=== PATIENT | female | born 1940 | race Caucasian/White ===

== ENCOUNTER 2016-07-10 18:37 | Emergency (ER) | payer OTHER, MEDICAID ==
[~2016-07-10] VITALS: Ht 162.6 cm; Wt 71.0 kg
[2016-07-10 18:58] VITALS: Ht 162.6 cm; Wt 71.0 kg
[2016-07-10 20:57] LABS: BASOPHIL # 0.1 10^3/ul (0.0-0.1); BASOPHILS % 0.6 % (0.0-2.0); EOSINOPHILS # 0.5 10^3/ul (0.0-0.5); EOSINOPHILS % 5.6 % (0.0-7.0); HEMOGLOBIN 11.8 g/dl (12.0-16.0); LYMPHOCYTES # 1.4 10^3/ul (0.8-2.9); LYMPHOCYTES % 14.5 % (15.0-51.0); MEAN CORPUSCULAR HEMOGLOBIN 31.5 pg (29.0-33.0); MEAN CORPUSCULAR HGB CONC 34.8 g/dl (32.0-37.0); MEAN CORPUSCULAR VOLUME 90.6 fl (82.0-101.0); MEAN PLATELET VOLUME 8.9 fl (7.4-10.4); MONOCYTE # 0.9 10^3/ul (0.3-0.9); MONOCYTES % 9.1 % (0.0-11.0); NEUTROPHIL # 6.7 10^3/ul (1.6-7.5); NEUTROPHILS % 70.2 % (39.0-77.0); PLATELET COUNT 319 10^3/UL (140-440); RED BLOOD COUNT 3.75 10^6/ul (4.20-5.40); RED CELL DISTRIBUTION WIDTH 13.2 % (11.5-14.5); UNCORRECTED WBC 9.5 10^3/ul (4.8-10.8); WHITE BLOOD COUNT 9.5 10^3/ul (4.8-10.8)
[2016-07-10 20:59] LABS: CONDITION 1
[2016-07-10 21:06] LABS: ALBUMIN 3.7 g/dl (3.3-4.9); POTASSIUM 4.1 mmol/L (3.5-5.1)
[2016-07-10 21:09] LABS: ALBUMIN/GLOBULIN RATIO 1.05; BILIRUBIN,INDIRECT 0.2 mg/dl (0-1.1); BILIRUBIN,TOTAL 0.2 mg/dl (0.2-1.3); CALCIUM 8.9 mg/dl (8.4-10.2); CREATININE 1.18 mg/dl (0.44-1.00); TOTAL PROTEIN 7.2 g/dl (6.1-8.1)
--- NOTE | 2016-07-10 21:42 | RADRPT ---
PROCEDURE: XR Chest. CLINICAL INDICATION: Bilateral leg swelling with branch. TECHNIQUE: Single frontal view of the chest was obtained COMPARISON: None FINDINGS: Cardiomegaly and atherosclerotic calcifications in the thoracic aorta. Very mild pulmonary vascular congestion. There is no pleural effusion or pneumothorax. IMPRESSION: Cardiomegaly and atherosclerotic calcifications in the thoracic aorta, with very mild pulmonary vasc ular congestion. RPTAT: [facility] Physician Karmen Date Time Electronically viewed and signed by Asa Gamble Physician on 07/10/2016 21:42 RS/
--- NOTE | 2016-07-10 22:11 | ERD ---
ER Documentation Chief Complaint Date/Time DATE: 07/10/16 TIME: 22:01 Chief Complaint rash all over body for past week HPI This is a 76-year-old female presenting to the emergency department for rash and bilateral leg swelling 1 week. Patient has generalized all over body rash to bilateral arms, bilateral legs, trunk, neck, hands and fingers. Patient states the rash is pruritic. Patient states she has gone to her primary care provider twice for this however the medications she is gotten has not helped with the rash. No fevers or chills. Patient also has swelling to bilateral legs. Patient has history of heart condition. Patient is poor historian. Patient is taking medications from [place] for this. No shortness of breath, difficult to breathing or chest pain. Denies loss of sensation, numbness or tingling. ROS All systems reviewed and are negative except as per history of present illness. Medications Home Meds Active Scripts Cephalexin* (Keflex*) 500 Mg Capsule, 500 MG PO QID for 5 Days, CAP Prov:BRETT MORRIS NP 07/10/16 Prednisone* (Prednisone*) 20 Mg Tab, 60 MG PO DAILY for 4 Days, TAB Prov:BRETT MORRIS NP 07/10/16 Allergies Allergies: Coded Allergies: No Known Allergy (Unverified , 07/10/16) PMhx/Soc Medical and Surgical Hx: pt denies Surgical Hx Hx Cardiac Disorders: Yes (htn) Hx Alcohol Use: No Hx Substance Use: No Hx Tobacco Use: No Smoking Status: Never smoker Physical Exam Vitals Vital Signs Date Time Temp Pulse Resp B/P Pulse Ox O2 Delivery O2 Flow Rate FiO2 07/10/16 23:24 97.0 55 18 135/62 100 Room Air 07/10/16 18:58 98.5 65 18 141/65 97 Physical Exam Const: No acute distress, alert Head: Atraumatic Eyes: Normal Conjunctiva ENT: Normal External Ears, Nose and Mouth. Neck: Full range of motion..~ No meningismus. Resp: Diminished to auscultation bilaterally Cardio: Regular rate and rhythm, no murmurs Abd: Soft, non tender, non distended. Normal bowel sounds Skin: Eczematous rash with itching, erythema, scaling and crusting to bilateral lower extremities. Similar rash to bilateral upper extremities on the dorsal aspect of bilateral arms. Some erythema to inner webs of fingers on bilateral hands appear Back: No midline or flank tenderness Ext: 1+ edema to bilateral lower extremities. Neur: Awake and alert Psych: Normal Mood and Affect Result Diagram: 07/10/16204207/10/162042 Results 24 hrs Laboratory Tests Test 07/10/16 20:43 Alanine Aminotransferase (ALT/SGPT) 21IU/L Albumin 3.7g/dl Albumin/Globulin Ratio 1.05 Alkaline Phosphatase 91IU/L Anion Gap 16 Aspartate Amino Transf (AST/SGOT) 15IU/L B-Type Natriuretic Peptide 2770PG/ML Basophils # 0.110^3/ul Basophils % 0.6% Blood Urea Nitrogen 28mg/dl Calcium Level 8.9mg/dl Carbon Dioxide Level 23mmol/L Chloride Level 103mmol/L Creatinine 1.18mg/dl Direct Bilirubin 0.00mg/dl Eosinophils # 0.510^3/ul Eosinophils % 5.6% Globulin 3.50g/dl Glucose Level 101mg/dl Hematocrit 34.0% Hemoglobin 11.8g/dl Indirect Bilirubin 0.2mg/dl Lymphocytes # 1.410^3/ul Lymphocytes % 14.5% Mean Corpuscular Hemoglobin 31.5pg Mean Corpuscular Hemoglobin Concent 34.8g/dl Mean Corpuscular Volume 90.6fl Mean Platelet Volume 8.9fl Monocytes # 0.910^3/ul Monocytes % 9.1% Neutrophils # 6.710^3/ul Neutrophils % 70.2% Nucleated Red Blood Cells # 0.010^3/ul Nucleated Red Blood Cells % 0.0/100WBC Platelet Count 83952^3/UL Potassium Level 4.1mmol/L Red Blood Count 3.7510^6/ul Red Cell Distribution Width 13.2% Sodium Level 138mmol/L Total Bilirubin 0.2mg/dl Total Protein 7.2g/dl White Blood Count 9.510^3/ul Current Medications Medications (Trade) Dose Ordered Sig/Cinda Route PRN Reason Start Time Stop Time Status Last Admin Dose Admin Furosemide (Lasix) 40 mg ONCE ONCE PO 07/10/16 22:30 07/10/16 22:31 DC 07/10/16 22:50 Dexamethasone (Decadron) 10 mg ONCE ONCE IM 07/10/16 22:30 07/10/16 22:31 DC 07/10/16 22:51 Procedures/MDM ED COURSE: The patient was stable throughout ED course. I kept the patient and/or family informed of laboratory and diagnostic imaging results throughout the ED course. Decadron and Lasix given Laboratory CBC hemoglobin 11.8, hematocrit 34.0 CMP BUN 28, creatinine 1.18 BNP 2770 Imaging Chest x-ray Patient: DARREL RODRIGUEZ : 1940 Age: 76 Sex: F [id number] DOS: 07/10/162013 Ordering MD: BRETT MORRIS NP Location: [facility] Room/Bed: PROCEDURE: XR Chest. CLINICAL INDICATION: Bilateral leg swelling with branch. TECHNIQUE: Single frontal view of the chest was obtained COMPARISON: None FINDINGS: Cardiomegaly and atherosclerotic calcifications in the thoracic aorta. Very mild pulmonary vascular congestion. There is no pleural effusion or pneumothorax. IMPRESSION: Cardiomegaly and atherosclerotic calcifications in the thoracic aorta, with very mild pulmonary vascular congestion. MDM: This is a 76-year-old female presents to the ER for rash and bilateral leg swelling 1 week. Patient has a history of heart condition and takes medications for this from [place]. Physical exam reveals eczematous rash with itching, erythema, scaling and crusting. Has 1+ edema to bilateral lower extremities. Labs significant for hemoglobin 11.8, hematocrit 34.0, BUN 28, creatinine 1.18, BNP 2770. Remains neurovascularly intact. Chest x-ray reviewed by radiologist as cardiomegaly and atherosclerotic calcifications in the thoracic aorta with very mild pulmonary vascular congestion. Discussed findings with Dr. Ordaz who also examined the patient. Dr. Ordaz believes that patient is safe for discharge home and appropriate for outpatient management with oral antibiotics and prednisone. Dr. Ordaz is also recommending oral Lasix and IM Decadron given in the ED prior to discharge. Patient remains hemodynamically stable throughout ED visit. Remains calm and comfortable. Patient's lung exam is unremarkable and is on her current CHF medications. CHF status remains stable despite lab results. No shortness of breath, difficulty breathing, wheezing or chest pain. Low suspicion for cellulitis, scabies or status dermatitis. Patient likely has contact dermatitis. Patient is appropriate for outpatient management will be given prescription for Keflex and prednisone. Instructed patient to follow-up with primary care provider in the next 1-2 days for reassessment and additional management. Resources provided. Return to ED for any high fever, chest pain, difficulty breathing, shortness breath, wheezing, vomiting, diarrhea, abdominal pain or any new or worsening symptoms. Patient verbalizes understanding. All questions answered at discharge. Departure Diagnosis: Primary Impression: Rash and other nonspecific skin eruption Condition: Stable BRETT MORRIS NP Jul 10, 2016 22:11
[2016-07-10] MEDS ORDERED: FUROSEMIDE 20 MG TAB PO ONE (22:30)
[2016-07-10] MEDS ORDERED: DEXAMETHASONE 10 MG/ML 1 ML INJ IM ONE (22:30)
[2016-07-10] MEDS ORDERED: PRED20TA PO (23:00)
[2016-07-10] MEDS ORDERED: CEPH-443 PO (23:00)
[2016-07-10 23:24] VITALS: BP 135/62; PULSE 55; RESP 18; TEMP 97
== END 2016-07-10 23:24 | disposition home or self-care (01) ==
LOC: E/R 18:37 → FTE 23:24
DX: R21 Rash and other nonspecific skin eruption (principal); I10 Essential (primary) hypertension
CPT/HCPCS: 71010; 80053; 83880; 85025; J1100; 96372

== ENCOUNTER 2016-08-08 20:15 | Inpatient (IN) | payer OTHER ==
[~2016-08-08] VITALS: Ht 162.6 cm; Wt 68.0 kg
[~2016-08-08 20:15] MED LIST: CEPH-443 PO; PRED20TA PO
[2016-08-08] MEDS ORDERED: FUROSEMIDE 40 MG INJ IV STA (22:22)
[2016-08-08] MEDS ORDERED: CONCOR PO (22:48)
--- NOTE | 2016-08-08 23:01 | RADRPT ---
PROCEDURE: XR Chest. CLINICAL INDICATION: Chest pain TECHNIQUE: AP Portable chest. COMPARISON: 07/10/2016 FINDINGS: There air is mild cardiomegaly. There is mild pulmonary vascular congestion. The osseous structure s are unremarkable. IMPRESSION: Mild pulmonary vascular congestion. RPTAT: HIKT .Niko Munguia MD, MD Date Time Electronically viewed and signed by .Niko Munguia MD, on 08/08/2016 23:01 .T/
[2016-08-08 23:44] LABS: ADD SCAN DIFF NO
[2016-08-08 23:48] LABS: BASOPHILS % 0.3 % (0.0-2.0); EOSINOPHILS # 0.8 10^3/ul (0.0-0.5); EOSINOPHILS % 10.5 % (0.0-7.0); HEMATOCRIT 31.7 % (37.0-47.0); HEMOGLOBIN 10.1 g/dl (12.0-16.0); LYMPHOCYTES # 1.2 10^3/ul (0.8-2.9); MEAN CORPUSCULAR HEMOGLOBIN 30.1 pg (29.0-33.0); MEAN CORPUSCULAR HGB CONC 31.9 g/dl (32.0-37.0); MEAN CORPUSCULAR VOLUME 94.6 fl (82.0-101.0); MEAN PLATELET VOLUME 10.6 fl (7.4-10.4); MONOCYTE # 0.7 10^3/ul (0.3-0.9); MONOCYTES % 9.1 % (0.0-11.0); NEUTROPHIL # 4.5 10^3/ul (1.6-7.5); NEUTROPHILS % 62.7 % (39.0-77.0); PLATELET COUNT 364 10^3/UL (140-415); RED BLOOD COUNT 3.35 10^6/ul (4.20-5.40); RED CELL DISTRIBUTION WIDTH 13.2 % (11.5-14.5); WHITE BLOOD COUNT 7.2 10^3/ul (4.8-10.8)
[2016-08-09] VITALS (11 sets, daily range): BP systolic 109–140; BP diastolic 56–63; PULSE 60–85; RESP 17–20; Ht 162.6 cm; Wt 68.0 kg
[2016-08-09] LABS: INR 1.12; PROTIME 14.4 Sec (12.2-14.2); PT RATIO 1.1
[2016-08-09 00:01] LABS: PARTIAL THROMBOPLASTIN TIME 27.9 Sec (25.0-35.0)
[2016-08-09 00:08] LABS: ALBUMIN 3.3 g/dl (3.3-4.9)
[2016-08-09 00:09] LABS: POTASSIUM 4.7 mmol/L (3.5-5.1)
--- NOTE | 2016-08-09 00:10 | ERA ---
ER Documentation Chief Complaint Date/Time DATE: 08/09/16 TIME: 00:08 Chief Complaint CHRISTINE UPPER AND LOWER EXT SWELLING. HX HEART FAILURE. +SOB UPON EXERTION HPI This is a 76 year from bilateral upper and lower extremity swelling. Patient has history of heart regular. Patient says she short of breath. No nausea no vomiting no chills. No other current complaints. No chest pain. ROS All systems reviewed and are negative except as per history of present illness. Medications Home Meds Active Scripts Cephalexin* (Keflex*) 500 Mg Capsule, 500 MG PO QID for 5 Days, CAP Prov:BRETT MORRIS NP 07/10/16 Reported Medications [Concor] No Conflict Check, 2.5 MG PO DAILY (BISOPROLOL) 08/08/16 Discontinued Scripts Prednisone* (Prednisone*) 20 Mg Tab, 60 MG PO DAILY for 4 Days, TAB Prov:BRETT MORRIS NP 07/10/16 Allergies Allergies: Coded Allergies: No Known Allergy (Unverified , 08/08/16) PMhx/Soc History of Surgery: No Anesthesia Reaction: No Hx Neurological Disorder: No Hx Respiratory Disorders: No Hx Cardiac Disorders: Yes (HTN, HYPERLIPIDS) Hx Psychiatric Problems: No Hx Miscellaneous Medical Probl: Yes (PRE-DM) Hx Alcohol Use: No Hx Substance Use: No Hx Tobacco Use: No Smoking Status: Never smoker Physical Exam Vitals Vital Signs Date Time Temp Pulse Resp B/P Pulse Ox O2 Delivery O2 Flow Rate FiO2 08/08/16 20:44 97.8 71 18 117/56 98 Physical Exam Const: [] Head: Atraumatic Eyes: Normal Conjunctiva ENT: Normal External Ears, Nose and Mouth. Neck: Full range of motion..~ No meningismus. Resp: Rales one third of the way bilaterally Cardio: Regular rate and rhythm, no murmurs Abd: Soft, non tender, non distended. Normal bowel sounds Skin: No petechiae or rashes Back: No midline or flank tenderness Ext: 2+ pitting edema up to the knee. Neur: Awake and alert Psych: Normal Mood and Affect Result Diagram: 08/08/16 5740 Results 24 hrs Laboratory Tests Test 08/08/16 23:01 Activated Partial Thromboplast Time 27.9Sec Basophils # 0.010^3/ul Basophils % 0.3% Eosinophils # 0.810^3/ul Eosinophils % 10.5% Hematocrit 31.7% Hemoglobin 10.1g/dl INR International Normalized Ratio 1.12 Lymphocytes # 1.210^3/ul Lymphocytes % 17.0% Mean Corpuscular Hemoglobin 30.1pg Mean Corpuscular Hemoglobin Concent 31.9g/dl Mean Corpuscular Volume 94.6fl Mean Platelet Volume 10.6fl Monocytes # 0.710^3/ul Monocytes % 9.1% Neutrophils # 4.510^3/ul Neutrophils % 62.7% Nucleated Red Blood Cells # 0.010^3/ul Nucleated Red Blood Cells % 0.0/100WBC Platelet Count 83754^3/UL Prothrombin Time 14.4Sec Prothrombin Time Ratio 1.1 Red Blood Count 3.3510^6/ul Red Cell Distribution Width 13.2% White Blood Count 7.210^3/ul Current Medications Medications (Trade) Dose Ordered Sig/Cinda Route PRN Reason Start Time Stop Time Status Last Admin Dose Admin Furosemide (Lasix) 40 mg ONCE STAT IV 08/08/16 22:22 08/08/16 22:23 DC 08/08/16 22:54 Procedures/MDM Chest X-ray 1V Interpreted by me: Soft Tissue: No acute abnormalities Bones: No acute abnormalities Mediastinum/Cardiac Silhouette/Lungs: Pulmonary vascular congestion. Impression: CHF EKG: Rate/Rhythm: Normal Sinus Rhythm QRS, ST, T-waves: No changes consistent w/ acute ischemia Impression: No evidence of ischemia or arrhythmia Patient's heart failure symptoms is concerning for acute decompensation and will require inpatient workup and monitoring. Further w/u for ischemia, arrhythmia, PE or dissection will be deferred to the inpatient team. Accepting Care Team: Current data and ongoing care discussed. Time: 1211 Primary Provider: Hospitalist Consulting: [XOXOXO] Outstanding Data: none Departure Diagnosis: Primary Impression: CHF (congestive heart failure) Qualified Code: I50.9 - Congestive heart failure, unspecified congestive heart failure chronicity, unspecified congestive heart failure type Condition: Serious MINH NORWOODAustyn Aug 09, 2016 00:10
[2016-08-09 00:11] LABS: ALBUMIN/GLOBULIN RATIO 1.17; CREATININE 1.31 mg/dl (0.44-1.00); TOTAL PROTEIN 6.1 g/dl (6.1-8.1)
[2016-08-09 00:12] LABS: CALCIUM 9.1 mg/dl (8.4-10.2)
[2016-08-09 00:29] LABS: TROPONIN-I 1.3 ng/ml (0.00-0.12)
[2016-08-09] MEDS ORDERED: ASPIRIN 325 MG TAB PO STA (01:23)
[2016-08-09] MEDS ORDERED: ENOXAPARIN 60 MG/0.6 ML SYG SC STA (01:23)
[2016-08-09] MEDS ORDERED: ACETAMINOPHEN 500 MG TAB PO PRN (05:00)
[2016-08-09] MEDS ORDERED: ONDANSETRON 4 MG INJ IV PRN (05:00)
[2016-08-09 06:37] LABS: ADD SCAN DIFF NO
[2016-08-09 06:56] LABS: BASOPHILS % 0.4 % (0.0-2.0); EOSINOPHILS # 0.6 10^3/ul (0.0-0.5); EOSINOPHILS % 9.1 % (0.0-7.0); HEMATOCRIT 31.6 % (37.0-47.0); HEMOGLOBIN 10.2 g/dl (12.0-16.0); LYMPHOCYTES # 0.9 10^3/ul (0.8-2.9); LYMPHOCYTES % 12.8 % (15.0-51.0); MEAN CORPUSCULAR HEMOGLOBIN 30.4 pg (29.0-33.0); MEAN CORPUSCULAR HGB CONC 32.3 g/dl (32.0-37.0); MEAN CORPUSCULAR VOLUME 94.3 fl (82.0-101.0); MEAN PLATELET VOLUME 10.6 fl (7.4-10.4); MONOCYTE # 0.7 10^3/ul (0.3-0.9); MONOCYTES % 10.6 % (0.0-11.0); NEUTROPHIL # 4.5 10^3/ul (1.6-7.5); NEUTROPHILS % 66.8 % (39.0-77.0); PLATELET COUNT 352 10^3/UL (140-415); RED BLOOD COUNT 3.35 10^6/ul (4.20-5.40); RED CELL DISTRIBUTION WIDTH 13.1 % (11.5-14.5); WHITE BLOOD COUNT 6.8 10^3/ul (4.8-10.8)
[2016-08-09 06:58] LABS: ALBUMIN 3.2 g/dl (3.3-4.9)
[2016-08-09 06:59] LABS: POTASSIUM 4.2 mmol/L (3.5-5.1)
[2016-08-09] MEDS ORDERED: FUROSEMIDE 20 MG INJ IV SCH (07:00)
[2016-08-09 07:01] LABS: ALBUMIN/GLOBULIN RATIO 0.96; CREATININE 1.23 mg/dl (0.44-1.00); TOTAL PROTEIN 6.5 g/dl (6.1-8.1)
[2016-08-09 07:02] LABS: CALCIUM 8.9 mg/dl (8.4-10.2); CHOL/HDL RATIO 3.6 RATIO
[2016-08-09 07:13] LABS: TROPONIN-I 0.836 ng/ml (0.00-0.12)
[2016-08-09 07:25] LABS: THYROID STIMULATING HORMONE 3.13 MIU/L (0.465-4.680)
[2016-08-09] MEDS: ASPIRIN 81 MG TAB PO SCH (08:10)
[2016-08-09] MEDS ORDERED: HEPARIN 5,000 UNIT/0.5 ML SYG SC SCH (09:00)
[2016-08-09] MEDS ORDERED: VANCOMYCIN IV PER PHARMACY XX SCH (09:00)
[2016-08-09] MEDS ORDERED: VANCOMYCIN 1.25 GM in SOD CHLORIDE 0.9% 250 ML IVPB ONE (09:30)
[2016-08-09] MEDS: CEFEPIME 1GM/50 ML (PMX) 50 ML IVPB SCH ×2 (10:22→20:23)
--- NOTE | 2016-08-09 11:02 | CONS ---
Date/Time of Note Date/Time of Note DATE: 08/09/16 TIME: 10:55 Assessment/Plan Assessment/Plan Additional Assessment/Plan Non-ST elevation UT Acute decompensated diastolic congestive heart failure Full-body rash Renal dysfunction -Patient with exertional shortness of breath and occasional intermittent arm pain. Also with lower extremity and upper extremity edema progressing over the past week. Patient's troponins are trending down, bedside echocardiogram pulmonary with preserved ejection fraction and at least moderate mitral valve regurgitation. I did have an extensive discussion with our patient and daughter at bedside. Given her evidence of elevated troponins, ECG abnormalities and symptoms, I am concerned of obstructive coronary artery disease as a possible etiology. I recommend cardiac catheterization which the patient is currently refusing. At the current time, she is asking for medical management only and does not want any invasive procedures. I will continue Lovenox, increased diuretic regimen, start lisinopril for afterload reduction. Start Plavix. Beta-glynn as blood pressure and heart rate permits. Would consider infectious disease and dermatology evaluation of rash. Consultation Date/Type/Reason Admit Date/Time Aug 09, 2016 at 09:03 Type of Consultation: cv Reason for Consultation Shortness of breath and elevated troponin Hx of Present Illness This is a 76-year-old female who presents to the emergency room with complaints of exertional shortness of breath, lower extremity edema worsening over the past week. She also complains of a full body rash which has been off and on over the past 2-3 months. Exertional shortness of breath has been going on for over 20 years but has worsened over the past week. Symptoms occur with exertion and improved with rest. She also complains of left arm pain as well at times with exertion. She denies any chest pain, dizziness or lightheadedness. She does complain of lower extremity edema over the past week. This full body rash began approximately 2-3 months ago. She has been on multiple antibiotics with no improvement. She denies any fevers or chills, dizziness or lightheadedness. 12 point review of systems was performed with all pertinent positives and negatives mentioned above and all else is negative Past Medical History Rash Family History Significant Family History: no pertinent family hx Social History Alcohol Use: none Smoking Status: Never smoker Other Social History Lives at home Exam/Review of Systems Vital Signs Vitals Vital Signs Date Time Temp Pulse Resp B/P Pulse Ox O2 Delivery O2 Flow Rate FiO2 08/09/16 08:00 75 08/09/16 07:48 97.9 18 116/56 97 08/09/16 04:15 Room Air Intake and Output 08/08/16 08/08/16 08/09/16 15:00 23:00 07:00 Intake Total 100 ml Output Total 1 ml Balance 99 ml Exam No apparent distress, walking in room Constitutional: alert, obese, oriented Head: normocephalic Neck: supple Respiratory: other (Coarse breath sounds bilaterally, no wheezing or rhonchi) Cardiovascular: other (S1-S2 heard), regular rate and rhythm, systolic murmur Gastrointestinal: bowel sounds, non-tender, other (No guarding), soft Extremities: edema (Upper and lower extremities), other (No cyanosis) Skin: other (Erythema noted bilateral lower extremities, upper extremities, chest wall, and back. Dry scaling skin seen on extremities.) Results Result Diagram: 08/09/16 0535 08/09/16 0535 Results 24 hrs Laboratory Tests Test 08/08/16 23:01 08/09/16 05:35 Activated Partial Thromboplast Time 27.9 Alanine Aminotransferase (ALT/SGPT) 30 26 Albumin 3.3 3.2 L Albumin/Globulin Ratio 1.17 0.96 Alkaline Phosphatase 86 85 Anion Gap 18 H 17 H Aspartate Amino Transf (AST/SGOT) 25 24 B-Type Natriuretic Peptide 5170 H Basophils # 0.0 0.0 Basophils % 0.3 0.4 Blood Urea Nitrogen 30 H 26 H Calcium Level 9.1 8.9 Carbon Dioxide Level 23 23 Chloride Level 106 108 Creatinine 1.31 H 1.23 H Direct Bilirubin 0.00 0.00 Eosinophils # 0.8 H 0.6 H Eosinophils % 10.5 H 9.1 H Globulin 2.80 3.30 H Glucose Level 146 105 # Hematocrit 31.7 L 31.6 L Hemoglobin 10.1 L 10.2 L INR International Normalized Ratio 1.12 Indirect Bilirubin 0.0 0.0 Lymphocytes # 1.2 0.9 Lymphocytes % 17.0 12.8 L Mean Corpuscular Hemoglobin 30.1 30.4 Mean Corpuscular Hemoglobin Concent 31.9 L 32.3 Mean Corpuscular Volume 94.6 94.3 Mean Platelet Volume 10.6 H 10.6 H Monocytes # 0.7 0.7 Monocytes % 9.1 10.6 Neutrophils # 4.5 4.5 Neutrophils % 62.7 66.8 Nucleated Red Blood Cells # 0.0 0.0 Nucleated Red Blood Cells % 0.0 0.0 Platelet Count 364 352 Potassium Level 4.7 4.2 Prothrombin Time 14.4 H Prothrombin Time Ratio 1.1 Red Blood Count 3.35 L 3.35 L Red Cell Distribution Width 13.2 13.1 Sodium Level 142 144 Total Bilirubin 0.0 L 0.0 L Total Protein 6.1 6.5 Troponin I 1.300 *H 0.836 *H White Blood Count 7.2 # 6.8 Cholesterol Level 141 Cholesterol/HDL Ratio 3.6 HDL Cholesterol 39 Hemoglobin A1c 6.4 H LDL Cholesterol, Calculated 78 Thyroid Stimulating Hormone (TSH) 3.130 Triglycerides Level 118 Medications Medications Current Medications Aspirin (Aspirin) 81 mg DAILY PO Last administered on 08/09/16 08:10; Admin Dose 81 MG; Start 08/09/16 at 09:00 Acetaminophen (Tylenol Tab) 500 mg Q6H PRN PO PAIN AND OR ELEVATED TEMP; Start 08/09/16 at 05:00 Ondansetron HCl 4 mg 4 mg Q6H PRN IV NAUSEA AND/OR VOMITING; Start 08/09/16 at 05:00 Cefepime HCl 50 ml @ 100 mls/hr Q12 IVPB Last administered on 08/09/16 10:22 ; Admin Dose 100 MLS/HR; Start 08/09/16 at 09:00 Vancomycin HCl/ Sodium Chloride (Vancocin/NS) 150 ml @ 75 mls/hr Q24H IVPB ; Start 08/10/16 at 08:00 Enoxaparin Sodium (Lovenox) 65 mg BID ONCE SC ; Start 08/09/16 at 21:00; Stop 08/09/16 at 21:01; Status UNV Lisinopril (Zestril) 2.5 mg BID PO ; Start 08/09/16 at 21:00; Status UNV Procedures Procedures ECG demonstrates sinus rhythm at 70 bpm, flipped T waves in inferior leads, nonspecific ST-T wave abnormalities Michael Coates DO Aug 09, 2016 11:02
[2016-08-09] MEDS: CLOPIDOGREL 75 MG TAB PO SCH (11:38)
--- NOTE | 2016-08-09 13:49 | RADRPT ---
Echocardiogram Report Patient Name: DARREL RODRIGUEZ Gender: Female Date: 1940 Study Date: 09-Aug-2016 Filter Tender Jelly: Chas Montero RUST Location: 5546 Ref. Physician: MINH NORTON Quality: Adequate Procedures: Transthoracic echocardiogram with complete 2D, M-Mode, and doppler examination. Indications: Congestive Heart Failure. 2D/M Mode Doppler Measurement Value Normal Ranges Measurement Value Normal Ranges LVIDd 2D 6.1 3.5 - 5.6 cm AV Peak Sae 1.6 m/sec LVIDs 2D 3.8 2.1 - 4.1 cm AV Peak PG 10.0 mmHg FS 2D 37.9 % LVOT Peak Sae 0.9 m/sec LVPWd 2D 0.9 0.6 - 1.1 cm LVOT Peak PG 3.0 mmHg IVSd 2D 1.0 0.6 - 1.1 cm MV E Peak Sae 1.0 m/sec IVS/LVPW 2D 1.1 MV A Peak Sae 1.1 m/sec AoR Diam 2D 3.3 2.0 - 3.7 cm MV E/A 0.9 LA/Ao 2D 1 0 - 1 MV Decel Time 310 msec EDV 2D 224.0 cm3 MV E/A 0.9 ESV 2D 53.6 cm3 TR Peak Sae 3.1 m/sec LA Dimen 2D 4.1 2.3 - 4.0 cm TR Peak PG 39.0 mmHg RVSP 47.0 mmHg Findings Left Ventricle: Normal left ventricular systolic function. Normal left ventricular cavity size. Normal left ventricular wall thickness. Ejection fraction is visually estimated at 55 %. Tissue Doppler/Mitral Doppler indices are consistent with impaired relaxation (Stage I diastolic dysfunction). Right Ventricle: Normal right ventricular size. Normal right ventricular systolic function. Left Atrium: There is mild enlargement of left atrium. LA Dimension4.10 cm. Right Atrium: There is mild enlargement of right atrium. Mitral Valve: Mild mitral leaflet calcification. Mild mitral annular calcification. Moderate mitral valve regurgitation. Aortic Valve: No significant aortic stenosis or insufficiency. Aortic cusps appear mildly calcified. Tricuspid Valve: Normal appearance and function of the tricuspid valve with trace physiologic regurgitation. Estimated peak PA systolic pressure 47 mmHg. Pulmonic Valve: Normal pulmonic valve appearance. Pericardium: Normal pericardium with no significant pericardial effusion. Aorta: Normal aortic root. IVC: Dilated IVC with respiratory collapse consistent with elevated right atrial pressure. Conclusions 1.Normal left ventricular systolic function. Normal left ventricular cavity size. Normal left ventricular wall thickness. Ejection fraction is visually estimated at 55 %. Tissue Doppler/Mitral Doppler indices are consistent with impaired relaxation (Stage I diastolic dysfunction). 2.Normal right ventricular size. Normal right ventricular systolic function. 3.There is mild enlargement of left atrium. 4.There is mild enlargement of right atrium. 5.Moderate mitral valve regurgitation. 6.Estimated peak PA systolic pressure 47 mmHg. 7.Normal pericardium with no significant pericardial effusion. Electronically Signed By: Michael Coates 09-Aug-2016 13:48:30 -0800 Patient Name: DARREL RODRIGUEZ Study Date: 09-Aug-2016 [id number]
--- NOTE | 2016-08-09 14:53 | CONS ---
Date/Time of Note Date/Time of Note DATE: 08/09/16 TIME: 14:51 Assessment/Plan Assessment/Plan Chief Complaint/Hosp Course [employer] SAL[employer] PERSON Scott requested ID consult on thisPt. I reviewed EMR on this Pt today. I will formally examine Pt tomorrow and make more recommendations. continue empiric IV vancomycin and cefepime for now. Problems: Consultation Date/Type/Reason Admit Date/Time Aug 09, 2016 at 09:03 Date of Consultation: Aug 09, 2016 Type of Consultation: ID Reason for Consultation rash, possible skin and soft tissue infection Referring Provider: REBECCA WEST Social History Alcohol Use: none Smoking Status: Never smoker Exam/Review of Systems Vital Signs Vitals Vital Signs Date Time Temp Pulse Resp B/P Pulse Ox O2 Delivery O2 Flow Rate FiO2 08/09/16 12:00 78 08/09/16 11:41 97.9 18 140/63 91 08/09/16 04:15 Room Air Intake and Output 08/08/16 08/08/16 08/09/16 15:00 23:00 07:00 Intake Total 100 ml Output Total 1 ml Balance 99 ml Results Result Diagram: 08/09/16 0535 08/09/16 0535 Results 24 hrs Laboratory Tests Test 08/08/16 23:01 08/09/16 05:35 Activated Partial Thromboplast Time 27.9 Alanine Aminotransferase (ALT/SGPT) 30 26 Albumin 3.3 3.2 L Albumin/Globulin Ratio 1.17 0.96 Alkaline Phosphatase 86 85 Anion Gap 18 H 17 H Aspartate Amino Transf (AST/SGOT) 25 24 B-Type Natriuretic Peptide 5170 H Basophils # 0.0 0.0 Basophils % 0.3 0.4 Blood Urea Nitrogen 30 H 26 H Calcium Level 9.1 8.9 Carbon Dioxide Level 23 23 Chloride Level 106 108 Creatinine 1.31 H 1.23 H Direct Bilirubin 0.00 0.00 Eosinophils # 0.8 H 0.6 H Eosinophils % 10.5 H 9.1 H Globulin 2.80 3.30 H Glucose Level 146 105 # Hematocrit 31.7 L 31.6 L Hemoglobin 10.1 L 10.2 L INR International Normalized Ratio 1.12 Indirect Bilirubin 0.0 0.0 Lymphocytes # 1.2 0.9 Lymphocytes % 17.0 12.8 L Mean Corpuscular Hemoglobin 30.1 30.4 Mean Corpuscular Hemoglobin Concent 31.9 L 32.3 Mean Corpuscular Volume 94.6 94.3 Mean Platelet Volume 10.6 H 10.6 H Monocytes # 0.7 0.7 Monocytes % 9.1 10.6 Neutrophils # 4.5 4.5 Neutrophils % 62.7 66.8 Nucleated Red Blood Cells # 0.0 0.0 Nucleated Red Blood Cells % 0.0 0.0 Platelet Count 364 352 Potassium Level 4.7 4.2 Prothrombin Time 14.4 H Prothrombin Time Ratio 1.1 Red Blood Count 3.35 L 3.35 L Red Cell Distribution Width 13.2 13.1 Sodium Level 142 144 Total Bilirubin 0.0 L 0.0 L Total Protein 6.1 6.5 Troponin I 1.300 *H 0.836 *H White Blood Count 7.2 # 6.8 Cholesterol Level 141 Cholesterol/HDL Ratio 3.6 HDL Cholesterol 39 Hemoglobin A1c 6.4 H LDL Cholesterol, Calculated 78 Thyroid Stimulating Hormone (TSH) 3.130 Triglycerides Level 118 Medications Medications Current Medications Aspirin (Aspirin) 81 mg DAILY PO Last administered on 08/09/16 08:10; Admin Dose 81 MG; Start 08/09/16 at 09:00 Acetaminophen (Tylenol Tab) 500 mg Q6H PRN PO PAIN AND OR ELEVATED TEMP; Start 08/09/16 at 05:00 Ondansetron HCl 4 mg 4 mg Q6H PRN IV NAUSEA AND/OR VOMITING; Start 08/09/16 at 05:00 Cefepime HCl 50 ml @ 100 mls/hr Q12 IVPB Last administered on 08/09/16 10:22 ; Admin Dose 100 MLS/HR; Start 08/09/16 at 09:00 Vancomycin HCl/ Sodium Chloride (Vancocin/NS) 150 ml @ 75 mls/hr Q24H IVPB ; Start 08/10/16 at 08:00 Enoxaparin Sodium (Lovenox) 65 mg Q24H SC ; Start 08/09/16 at 21:00 Lisinopril (Zestril) 2.5 mg BID PO ; Start 08/09/16 at 21:00 Clopidogrel Bisulfate (plaVIX) 75 mg DAILY PO Last administered on 08/09/16 11 :38; Admin Dose 75 MG; Start 08/09/16 at 11:30 Metoprolol Tartrate (Lopressor) 12.5 mg BID PO ; Start 08/09/16 at 21:00 Pantoprazole (Protonix Tab) 40 mg DAILY@06 PO ; Start 08/10/16 at 06:00 MENDY MICHAEL M.D. Aug 09, 2016 14:53
--- NOTE | 2016-08-09 15:07 | HP ---
DATE OF ADMISSION: 08/09/2016 HISTORY OF PRESENT ILLNESS: The patient is a 76-year-old female who presented to the emergency room with bilateral lower extremity swelling and erythema and pruritus. The history was provided by kimberley dawn's daughter at the bedside. The patient has a history of hypertension, coronary artery disease and hyperlipidemia. The patient takes medication from [place]. The patient takes bisoprolol 2.5 mg daily and takes Imdur for symptoms of chest pain or shortness of breath. The patient is also predia betic. The patient also complains of body rash. The patient presented with symptoms of rash to the emergency room 1 month ago, was given prednisone and Keflex. The patient also was followed w ith a primary care physician and continued on prednisone and Keflex with no improvement in symptoms. According to the patient's daughter, the patient developed bilateral lower extremity swelling, als o had developed a blister which popped. On admission to emergency room, the patient's troponin was elevated to 1.3. The patient's 12-lead EKG revealed normal sinus rhythm. The patient also underwen t chest x-ray, which showed mild pulmonary vascular congestion, mild cardiomegaly. The patient was given Lasix and Lovenox and was started on vancomycin and cefepime. The patient currently denies an y fever. Denies any nausea or vomiting. Denies diarrhea. The patient complains of exertional shor tness of breath and occasional intermittent chest pain. The patient is admitted for further evaluat ion and management to telemetry floor. PAST MEDICAL HISTORY: Per HPI. PAST SURGICAL HISTORY: The patient denies having any surgeries. SOCIAL HISTORY: The patient lives at home with her son. The patient denies any tobacco use, denies any alcohol use, denies any illicit drug use. FAMILY HISTORY: Noncontributory. ALLERGIES: NO KNOWN ALLERGIES. MEDICATIONS ON ADMISSION: 1. Bisoprolol 2.5 mg daily. 2. Imdur 5 mg p.r.n. for shortness of breath or chest pain. 3. Prednisone 4. Keflex. REVIEW OF SYSTEMS: A 12-point review of systems is negative unless what mentioned in the HPI. PHYSICAL ASSESSMENT: GENERAL: Well-developed, well-nourished female in no acute distress, awake, alert. VITAL SIGNS: Temperature 97.9, pulse is 72, blood pressure is 140/63, respiratory rate 18, oxygen s aturation is 97% on room air. HEENT: Head is atraumatic, normocephalic. Pupils equal, round, reactive to light and accommodation . Oral mucosa is pink and moist. NECK: Supple, no cervical lymphadenopathy, no thyromegaly. CHEST: Lungs clear bilaterally. There is no rhonchi, wheezes, rales noted. CARDIOVASCULAR: Normal S1, S2. No murmurs, gallops, clicks, rubs noted. ABDOMEN: Protuberant, soft, nondistended, nontender. Bowel sounds present. There is no guarding, no rebound tenderness. EXTREMITIES: Bilateral extremity edema 1+. SKIN: The patient has all over body redness and some rash. NEUROLOGIC: The patient is awake, alert and oriented x3. No focal deficits noted. Motor strength is 5/5 in all extremities. LABORATORY DATA: On admission, CBC: White blood cell 7.2, hemoglobin 10.1, hematocrit 31.7, platel ets 364. Chemistry: Sodium is 142, potassium 4.7, chloride 106, carbon dioxide 23, anion gap 18, B UN is 30, creatinine 1.31, glucose 146. AST is 25, ALT 30, alkaline phosphatase 86. Troponin is 1. 3. BNP is 5170. PT is 14.4, INR is 1.12, APTT is 27.9. ASSESSMENT AND PLAN: 1. Non-ST elevation myocardial infarction. The patient is followed by Dr. Coates in cardiology con [facility], [place]. Continue Lovenox, Plavix, aspirin and metoprolol. 2. Acute decompensated diastolic congestive heart failure. We will obtain a 2D echo and evaluation of ejection fraction. Continue IV Lasix, monitor electrolytes. 3. Possible bilateral lower extremity cellulitis. Continue patient on vancomycin and cefepime. We will ask Dr. Steele to see patient in infectious disease consultation. 4. Hypertension. 5. Hyperlipidemia. 6. Prediabetes. 7. Full body rash. PLAN: We will obtain scabies scrape. I spoke with the window caser, Nancy, to arrange for patient a dermatology evaluation according to patient's insurance. We will continue Lovenox for deep venou s thrombosis prophylaxis and Pepcid for peptic ulcer disease prophylaxis. Further recommendations b ased on clinical course. Plan of care discussed with Dr. Doe. Dictated By: REBECCA WEST OPERATOR TECHNICIAN for BREE DOE MD, SR/YAZAN Conf#: [id number] DID#: [id number]
[2016-08-09] MEDS: FUROSEMIDE 20 MG INJ IV SCH (18:03)
[2016-08-09] MEDS: LORATADINE 10 MG TAB PO SCH (18:04)
[2016-08-09] MEDS: LISINOPRIL 5 MG TAB PO SCH (20:23)
[2016-08-09] MEDS: METHYLPREDNISOLONE 40 MG INJ IV SCH (20:24)
[2016-08-09] MEDS: METOPROLOL 25 MG TAB PO SCH (20:24)
[2016-08-09] MEDS ORDERED: ENOXAPARIN 60 MG/0.6 ML SYG SC SCH (21:00)
[2016-08-10] VITALS (11 sets, daily range): BP systolic 114–140; BP diastolic 54–81; PULSE 68–140; RESP 17–19
[2016-08-10] MEDS: PANTOPRAZOLE (EC) 40 MG TAB PO SCH (06:29)
[2016-08-10] MEDS: FUROSEMIDE 20 MG INJ IV SCH ×2 (06:29→17:38)
[2016-08-10] MEDS ORDERED: VANCOMYCIN 750 MG in SOD CHLORIDE 0.9% 150 ML IVPB SCH (08:00)
[2016-08-10] MEDS: METOPROLOL 25 MG TAB PO SCH ×2 (08:18→21:53)
[2016-08-10] MEDS: LORATADINE 10 MG TAB PO SCH (08:24)
[2016-08-10] MEDS: METHYLPREDNISOLONE 40 MG INJ IV SCH ×2 (08:24→21:44)
[2016-08-10 08:43] LABS: POTASSIUM 3.6 mmol/L (3.5-5.1)
[2016-08-10 08:46] LABS: CREATININE 0.9 mg/dl (0.44-1.00)
[2016-08-10 08:47] LABS: CALCIUM 8.6 mg/dl (8.4-10.2)
[2016-08-10] MEDS: LISINOPRIL 5 MG TAB PO SCH ×2 (09:00→21:45)
[2016-08-10 09:35] LABS: ADD SCAN DIFF NO
[2016-08-10 09:39] LABS: BASOPHILS % 0.2 % (0.0-2.0); HEMATOCRIT 32.1 % (37.0-47.0); HEMOGLOBIN 10.5 g/dl (12.0-16.0); LYMPHOCYTES # 0.8 10^3/ul (0.8-2.9); LYMPHOCYTES % 13.5 % (15.0-51.0); MEAN CORPUSCULAR HEMOGLOBIN 30.8 pg (29.0-33.0); MEAN CORPUSCULAR HGB CONC 32.7 g/dl (32.0-37.0); MEAN CORPUSCULAR VOLUME 94.1 fl (82.0-101.0); MEAN PLATELET VOLUME 10.8 fl (7.4-10.4); MONOCYTE # 0.3 10^3/ul (0.3-0.9); MONOCYTES % 5.2 % (0.0-11.0); NEUTROPHIL # 4.5 10^3/ul (1.6-7.5); NEUTROPHILS % 80.7 % (39.0-77.0); PLATELET COUNT 376 10^3/UL (140-415); RED BLOOD COUNT 3.41 10^6/ul (4.20-5.40); RED CELL DISTRIBUTION WIDTH 13.1 % (11.5-14.5); WHITE BLOOD COUNT 5.5 10^3/ul (4.8-10.8)
[2016-08-10] MEDS: CEFEPIME 1GM/50 ML (PMX) 50 ML IVPB SCH ×2 (09:44→21:43)
--- NOTE | 2016-08-10 10:19 | CONS ---
Date/Time of Note Date/Time of Note DATE: 08/10/16 TIME: 10:06 Assessment/Plan Assessment/Plan Chief Complaint/Hosp Course - pruritic rash with excoriation, scabs, concerning for scabies with possibly superimposed infection - recent h/o subcutaneous fluid collection of RLE s/p needle aspiration at her PMD's office - pain of b/l LE, edema of RLE - 3 cm x 3 cm superficial ulcer of RLE, non-purulent - prediabetes - HTN recommendations - I asked a pathologist to do skin scraping to r/o scabies. I personally spoke with Adeola at Path Dept to collect samples from b/l wrist, ankle and neck. Adeola said that the skin will be scraped this afternoon. - if skin scraping is non-diagnostic, I recommend skin biopsy - I ordered wound culture by swabbing the open ulcer of R lower extremity - I ordered soft tissue ultrasound of R lower extremity where Pt had subcutaneous fluid collection 2 weeks ago - Venous doppler of bilateral lower extremity to r/o DVT (ordered) - continue IV vancomycin and cefepime while waiting for wound culture result - keep her under contact isolation until scabies, multidrug resistant bacteria are ruled out management d/w Pt, her daughter, RN and Adeola at Pathology Dept Problems: Consultation Date/Type/Reason Admit Date/Time Aug 09, 2016 at 09:03 Date of Consultation: Aug 09, 2016 Type of Consultation: ID Reason for Consultation pruritic rash Hx of Present Illness This is a 76 yo female who resides at home with her son. Pt has developed extremely pruritic rash on the neck, trunk and all extremities. She has been scratching the affected areas constantly. As a result, various parts of her skin were excoriated, largest an open ulcer on right lower extremity. About two weeks ago, Pt developed subcutaneous fluid collection under the ulcer. Pt' s PMD did bed-side needle aspiration of the fluid collection. According to the daughter the fluid appeared cloudy. Pt was given cephalexin and according to EMR, steroid, without relief. Pt denies sick contact. Nobody else has the same skin lesions. She does not spend time at adult daycare or SNF. Pt spent 6 months in [place] within the last one year but did not develop these symptoms while he was in [place]. Pt denies new medications/cosmetics to the skin prior to development of her rash. At present, Pt complaints of pruritis of the affected skin. In addition she c/o pain from b/l LE. GIANA Smith requested ID consultation on this Pt. Constitutional: no complaints Eyes: no complaints ENT: no complaints Respiratory: no complaints Cardiovascular: no complaints Gastrointestinal: no complaints Genitourinary: no complaints Musculoskeletal: no complaints Skin: pruritis, rash, skin lesions Neurologic: no complaints Past Medical History Medical History: hypertension, other (prediabetes) Social History Alcohol Use: none Smoking Status: Never smoker Drug Use: none Exam/Review of Systems Vital Signs Vitals Vital Signs Date Time Temp Pulse Resp B/P Pulse Ox O2 Delivery O2 Flow Rate FiO2 08/10/16 08:21 68 08/10/16 07:56 97.8 18 114/54 96 08/09/16 04:15 Room Air Intake and Output 08/09/16 08/09/16 08/10/16 15:00 23:00 07:00 Intake Total 820 ml 500 ml Output Total 5 ml 3 ml Balance 815 ml 497 ml Exam Constitutional: frail, No distress Psych: nl mood/affect, no complaints Head: atraumatic, normocephalic Eyes: nl conjunctiva, nl lids ENMT: nl external ears & nose, nl nasal mucosa & septum Neck: supple Respiratory: clear to auscultation, normal air movement Cardiovascular: nl pulses, regular rate and rhythm Gastrointestinal: non-tender, soft Extremities: edema (RLE) Neurological: nl speech, No confused Skin: rash or lesions (excoriation, scabs on all extremities, trunk and neck) Results Result Diagram: 08/10/1649 08/10/16 0749 Results 24 hrs Laboratory Tests Test 08/10/16 07:49 Anion Gap 17 H Basophils # 0.0 Basophils % 0.2 Blood Urea Nitrogen 21 H Calcium Level 8.6 Carbon Dioxide Level 23 Chloride Level 107 Creatinine 0.90 Eosinophils # 0.0 Eosinophils % 0.0 Glucose Level 140 Hematocrit 32.1 L Hemoglobin 10.5 L Lymphocytes # 0.8 Lymphocytes % 13.5 L Mean Corpuscular Hemoglobin 30.8 Mean Corpuscular Hemoglobin Concent 32.7 Mean Corpuscular Volume 94.1 Mean Platelet Volume 10.8 H Monocytes # 0.3 Monocytes % 5.2 Neutrophils # 4.5 Neutrophils % 80.7 H Nucleated Red Blood Cells # 0.0 Nucleated Red Blood Cells % 0.0 Platelet Count 376 Potassium Level 3.6 Red Blood Count 3.41 L Red Cell Distribution Width 13.1 Sodium Level 143 White Blood Count 5.5 Medications Medications Current Medications Aspirin (Aspirin) 81 mg DAILY PO Last administered on 08/09/16 08:10; Admin Dose 81 MG; Start 08/09/16 at 09:00 Acetaminophen (Tylenol Tab) 500 mg Q6H PRN PO PAIN AND OR ELEVATED TEMP; Start 08/09/16 at 05:00 Ondansetron HCl 4 mg 4 mg Q6H PRN IV NAUSEA AND/OR VOMITING; Start 08/09/16 at 05:00 Cefepime HCl (Maxipime 1gm/50 ml (Pmx)) 50 ml @ 100 mls/hr Q12 IVPB Last administered on 08/10/16 09:44; Admin Dose 100 MLS/HR; Start 08/09/16 at 09:00 Enoxaparin Sodium (Lovenox) 65 mg Q24H SC Last administered on 08/09/16 20:30 ; Admin Dose 65 MG; Start 08/09/16 at 21:00; Status Future Hold Lisinopril (Zestril) 2.5 mg BID PO Last administered on 08/09/16 20:23; Admin Dose 2.5 MG; Start 08/09/16 at 21:00 Clopidogrel Bisulfate (plaVIX) 75 mg DAILY PO Last administered on 08/09/16 11 :38; Admin Dose 75 MG; Start 08/09/16 at 11:30 Metoprolol Tartrate (Lopressor) 12.5 mg BID PO Last administered on 08/09/16 20:24; Admin Dose 12.5 MG; Start 08/09/16 at 21:00 Pantoprazole 40 mg 40 mg DAILY@06 PO Last administered on 08/10/16 06:29; Admin Dose 40 MG; Start 08/10/16 at 06:00 Vancomycin HCl/ Sodium Chloride (Vancocin/NS) 150 ml @ 75 mls/hr Q24H IVPB ; Start 08/10/16 at 11:00 Methylprednisolone Sodium Succinate (Solu-Medrol) 20 mg Q12 IV Last administered on 08/10/16 08:24; Admin Dose 20 MG; Start 08/09/16 at 21:00 Loratadine (Claritin) 10 mg DAILY PO Last administered on 08/10/16 08:24; Admin Dose 10 MG; Start 08/09/16 at 18:30 MENDY MICHAEL M.D. Aug 10, 2016 10:18
--- NOTE | 2016-08-10 11:23 | RADRPT ---
PROCEDURE: US Lower extremity Venous. CLINICAL INDICATION: Bilateral lower extremity swelling TECHNIQUE: Multiple sonographic images of the bilateral lower extremity deep venous system was obt ained utilizing grayscale, color-flow, compressive sonography and doppler imaging with augmentation. The images were reviewed on a PACS workstation. COMPARISON: None. FINDINGS: There is normal compressibility and flow within the bilateral common femoral, superficial femoral , posterior tibial and popliteal veins. RPTAT: AA IMPRESSION: No sonographic evidence for deep venous thrombosis. .Bo Mosqueda MD, MD Date Time Electronically viewed and signed by .Bo Mosqueda MD, on 08/10/2016 11:22 .S/
[2016-08-10] MEDS: ASPIRIN 81 MG TAB PO SCH (11:40)
[2016-08-10] MEDS: VANCOMYCIN 750 MG in SOD CHLORIDE 0.9% 150 ML IVPB SCH (11:40)
[2016-08-10] MEDS: CLOPIDOGREL 75 MG TAB PO SCH (11:40)
--- NOTE | 2016-08-10 11:51 | RADRPT ---
PROCEDURE: Right lower extremity ultrasound - nonvascular. CLINICAL INDICATION: Right lower extremity pain and swelling. History of right lower extremity ab scess. TECHNIQUE: Multiple ultrasonographic images of the right lower extremity were performed with a hig h frequency transducer. Doppler was used as needed. Images were reviewed on a high-resolution PACS monitor. COMPARISON: Right lower extremity venous ultrasound 08/10/2016. FINDINGS: Dedicated evaluation in the area of previous abscess and area of clinical concern demonstrates chinedu l intact fascial planes. There is no evidence of fluid collection to suggest abscess. There is no marked edema present. IMPRESSION: 1. No evidence of abscess in the area of clinical concern. RPTAT: KK .Terrance Langston MD, MD Date Time Electronically viewed and signed by .Terrance Langston MD, on 08/10/2016 11:51 .B/
[2016-08-10] MEDS ORDERED: FUROSEMIDE 20 MG INJ IV ONE (13:00)
[2016-08-10] MEDS ORDERED: POTASSIUM CHLORIDE (SR) 20 MEQ TAB PO STA (13:02)
--- NOTE | 2016-08-10 13:02 | CONS ---
Date/Time of Note Date/Time of Note DATE: 08/10/16 TIME: 13:00 Assessment/Plan Assessment/Plan Additional Assessment/Plan Non-ST elevation [place] Acute decompensated diastolic congestive heart failure Moderate mitral valve regurgitation Full-body rash Renal dysfunction -Patient with improvement in shortness of breath with diuretics. Would give additional dose of IV diuretics now. Change to p.o. in the next 1-2 days. I did have an extensive discussion with the patient and daughter again today regarding her presenting symptoms, elevated troponins and concern for obstructive coronary artery disease. Once again, they are refusing cardiac catheterization and requesting medical management only. Will continue aspirin and Plavix therapy, statin therapy, beta-glynn and ANSON inhibitor as renal function and blood pressure permits. Consultation Date/Type/Reason Admit Date/Time Aug 09, 2016 at 09:03 Initial Consult Date 08/09/16 Type of Consultation: cv Referring Provider: REBECCA WEST 24 HR Interval Summary Free Text/Dictation Shortness of breath is better, denies chest pain, dizziness or palpitations Exam/Review of Systems Vital Signs Vitals Vital Signs Date Time Temp Pulse Resp B/P Pulse Ox O2 Delivery O2 Flow Rate FiO2 08/10/16 12:14 79 08/10/16 12:08 98.3 19 134/70 96 08/09/16 04:15 Room Air Intake and Output 08/09/16 08/09/16 08/10/16 15:00 23:00 07:00 Intake Total 820 ml 500 ml Output Total 5 ml 3 ml Balance 815 ml 497 ml Exam No apparent distress Constitutional: alert, obese, oriented Head: normocephalic Neck: supple Respiratory: other (Coarse breath sounds bilaterally, no wheezing) Cardiovascular: other (S1-S2 heard), regular rate and rhythm, systolic murmur Gastrointestinal: bowel sounds, non-tender, other (No guarding), soft Extremities: edema Results Result Diagram: 08/10/16 0749 08/10/16 0749 Results 24 hrs Laboratory Tests Test 08/10/16 07:49 Anion Gap 17 H Basophils # 0.0 Basophils % 0.2 Blood Urea Nitrogen 21 H Calcium Level 8.6 Carbon Dioxide Level 23 Chloride Level 107 Creatinine 0.90 Eosinophils # 0.0 Eosinophils % 0.0 Glucose Level 140 Hematocrit 32.1 L Hemoglobin 10.5 L Lymphocytes # 0.8 Lymphocytes % 13.5 L Mean Corpuscular Hemoglobin 30.8 Mean Corpuscular Hemoglobin Concent 32.7 Mean Corpuscular Volume 94.1 Mean Platelet Volume 10.8 H Monocytes # 0.3 Monocytes % 5.2 Neutrophils # 4.5 Neutrophils % 80.7 H Nucleated Red Blood Cells # 0.0 Nucleated Red Blood Cells % 0.0 Platelet Count 376 Potassium Level 3.6 Red Blood Count 3.41 L Red Cell Distribution Width 13.1 Sodium Level 143 White Blood Count 5.5 Medications Medications Current Medications Aspirin (Aspirin) 81 mg DAILY PO Last administered on 08/10/16 11:40; Admin Dose 81 MG; Start 08/09/16 at 09:00 Acetaminophen (Tylenol Tab) 500 mg Q6H PRN PO PAIN AND OR ELEVATED TEMP; Start 08/09/16 at 05:00 Ondansetron HCl 4 mg 4 mg Q6H PRN IV NAUSEA AND/OR VOMITING; Start 08/09/16 at 05:00 Cefepime HCl (Maxipime 1gm/50 ml (Pmx)) 50 ml @ 100 mls/hr Q12 IVPB Last administered on 08/10/16 09:44; Admin Dose 100 MLS/HR; Start 08/09/16 at 09:00 Enoxaparin Sodium (Lovenox) 65 mg Q24H SC Last administered on 08/09/16 20:30 ; Admin Dose 65 MG; Start 08/09/16 at 21:00; Status Future Hold Lisinopril (Zestril) 2.5 mg BID PO Last administered on 08/09/16 20:23; Admin Dose 2.5 MG; Start 08/09/16 at 21:00 Clopidogrel Bisulfate (plaVIX) 75 mg DAILY PO Last administered on 08/10/16 11: 40; Admin Dose 75 MG; Start 08/09/16 at 11:30 Metoprolol Tartrate (Lopressor) 12.5 mg BID PO Last administered on 08/09/16 20:24; Admin Dose 12.5 MG; Start 08/09/16 at 21:00 Pantoprazole 40 mg 40 mg DAILY@06 PO Last administered on 08/10/16 06:29; Admin Dose 40 MG; Start 08/10/16 at 06:00 Vancomycin HCl/ Sodium Chloride (Vancocin/NS) 150 ml @ 75 mls/hr Q24H IVPB Last administered on 08/10/16 11:40; Admin Dose 75 MLS/HR; Start 08/10/16 at 11: 00 Methylprednisolone Sodium Succinate (Solu-Medrol) 20 mg Q12 IV Last administered on 08/10/16 08:24; Admin Dose 20 MG; Start 08/09/16 at 21:00 Loratadine (Claritin) 10 mg DAILY PO Last administered on 08/10/16 08:24; Admin Dose 10 MG; Start 08/09/16 at 18:30 Michael Coates DO Aug 10, 2016 13:02
[2016-08-10] MEDS ORDERED: MAGNESIUM SULFATE 2 GM/50 ML 50 ML IVPB ONE (14:30)
[2016-08-10] MEDS: HYDROCODONE/APAP (5/325) TAB PO PRN (15:54)
--- NOTE | 2016-08-10 18:34 | RADRPT ---
PROCEDURE: US upper extremity Venous. CLINICAL INDICATION: Left arm pain and swelling. TECHNIQUE: Multiple sonographic images of the left upper extremity venous system was obtained util izing grayscale, color-flow, compressive sonography and doppler imaging with augmentation. The imag es were reviewed on a PACS workstation. COMPARISON: None. FINDINGS: There is normal compressibility and flow within the left internal jugular vein, subclavian vein, axi llary vein, brachial, basilic, , radial and ulnar veins. Left cephalic vein is not visualized RPTAT: AA IMPRESSION: No sonographic evidence for venous thrombosis. RPTAT: UU Physician Karmen Date Time Electronically viewed and signed by Physician Karmen on 08/10/2016 18:34 RS/
[2016-08-10] MEDS ORDERED: POTASSIUM CHLORIDE (SR) 20 MEQ TAB PO ONE (19:00)
--- NOTE | 2016-08-10 19:01 | PN ---
Date/Time of Note Date/Time of Note DATE: 08/10/16 TIME: 18:48 Assessment/Plan VTE Prophylaxis VTE Prophylaxis Intervention: SCD's Lines/Catheters IV Catheter Type (from [facility]): [place] [facility] Urinary Cath still in place: No Assessment/Plan Chief Complaint/Hosp Course ASSESSMENT AND PLAN: 1. Non-ST elevation myocardial infarction. Pt anf pt's daughter refused cardiac cath. The patient is followed by Dr. Coates in cardiology consultation. Continue Lovenox, Plavix, aspirin and metoprolol. 2. Acute decompensated diastolic congestive heart failure. Continue IV Lasix , monitor electrolytes. 3. Possible bilateral lower extremity cellulitis. Continue patient on vancomycin and cefepime. Dr. Ivette chavis is following in infectious disease consultation. 4. Hypertension. 5. Hyperlipidemia. 6. Prediabetes. 7. Full body rash. r/o scabies. Continue Lovenox for deep venous thrombosis prophylaxis and Pepcid for peptic ulcer disease prophylaxis. Further recommendations based on clinical course. Plan of care discussed with Dr. Menon. Problems: Subjective 24 Hr Interval Summary Free Text/Dictation Patient denies any chest pain denies shortness of breath, patient's complaint of left upper extremity pain, will obtain venous Doppler to rule out DVT. Exam/Review of Systems Vital Signs Vitals Vital Signs Date Time Temp Pulse Resp B/P Pulse Ox O2 Delivery O2 Flow Rate FiO2 08/10/16 16:04 107 08/10/16 12:08 98.3 19 134/70 96 08/09/16 04:15 Room Air Intake and Output 08/09/16 08/09/16 08/10/16 15:00 23:00 07:00 Intake Total 820 ml 500 ml Output Total 5 ml 3 ml Balance 815 ml 497 ml Exam GENERAL: Well-developed, well-nourished female in no acute distress, awake, alert. HEENT: Head is atraumatic, normocephalic. NECK: Supple, no cervical lymphadenopathy, no thyromegaly. CHEST: Lungs clear bilaterally. There is no rhonchi, wheezes, rales noted. CARDIOVASCULAR: Normal S1, S2. No murmurs, gallops, clicks, rubs noted. ABDOMEN: Protuberant, soft, nondistended, nontender. Bowel sounds present. EXTREMITIES: Bilateral extremity edema 1+. SKIN: The patient has all over body redness and some rash. NEUROLOGIC: The patient is awake, alert and oriented x3. Results Result Diagram: 08/10/16 0749 08/10/16 0749 Results 24 hrs Laboratory Tests Test 08/10/16 07:49 Anion Gap 17 H Basophils # 0.0 Basophils % 0.2 Blood Urea Nitrogen 21 H Calcium Level 8.6 Carbon Dioxide Level 23 Chloride Level 107 Creatinine 0.90 Eosinophils # 0.0 Eosinophils % 0.0 Glucose Level 140 Hematocrit 32.1 L Hemoglobin 10.5 L Lymphocytes # 0.8 Lymphocytes % 13.5 L Mean Corpuscular Hemoglobin 30.8 Mean Corpuscular Hemoglobin Concent 32.7 Mean Corpuscular Volume 94.1 Mean Platelet Volume 10.8 H Monocytes # 0.3 Monocytes % 5.2 Neutrophils # 4.5 Neutrophils % 80.7 H Nucleated Red Blood Cells # 0.0 Nucleated Red Blood Cells % 0.0 Platelet Count 376 Potassium Level 3.6 Red Blood Count 3.41 L Red Cell Distribution Width 13.1 Sodium Level 143 White Blood Count 5.5 Medications Medications Current Medications Aspirin (Aspirin) 81 mg DAILY PO Last administered on 08/10/16 11:40; Admin Dose 81 MG; Start 08/09/16 at 09:00 Acetaminophen (Tylenol Tab) 500 mg Q6H PRN PO PAIN AND OR ELEVATED TEMP Last administered on 08/10/16 13:31; Admin Dose 500 MG; Start 08/09/16 at 05:00 Ondansetron HCl 4 mg 4 mg Q6H PRN IV NAUSEA AND/OR VOMITING; Start 08/09/16 at 05:00 Cefepime HCl (Maxipime 1gm/50 ml (Pmx)) 50 ml @ 100 mls/hr Q12 IVPB Last administered on 08/10/16 09:44; Admin Dose 100 MLS/HR; Start 08/09/16 at 09:00 Enoxaparin Sodium (Lovenox) 65 mg Q24H SC Last administered on 08/09/16 20:30 ; Admin Dose 65 MG; Start 08/09/16 at 21:00; Status Future Hold Lisinopril (Zestril) 2.5 mg BID PO Last administered on 08/09/16 20:23; Admin Dose 2.5 MG; Start 08/09/16 at 21:00 Clopidogrel Bisulfate (plaVIX) 75 mg DAILY PO Last administered on 08/10/16 11: 40; Admin Dose 75 MG; Start 08/09/16 at 11:30 Pantoprazole 40 mg 40 mg DAILY@06 PO Last administered on 08/10/16 06:29; Admin Dose 40 MG; Start 08/10/16 at 06:00 Vancomycin HCl/ Sodium Chloride (Vancocin/NS) 150 ml @ 75 mls/hr Q24H IVPB Last administered on 08/10/16 11:40; Admin Dose 75 MLS/HR; Start 08/10/16 at 11: 00 Methylprednisolone Sodium Succinate (Solu-Medrol) 20 mg Q12 IV Last administered on 08/10/16 08:24; Admin Dose 20 MG; Start 08/09/16 at 21:00 Loratadine (Claritin) 10 mg DAILY PO Last administered on 08/10/16 08:24; Admin Dose 10 MG; Start 08/09/16 at 18:30 Metoprolol Tartrate (Lopressor) 25 mg BID PO ; Start 08/10/16 at 21:00 Potassium Chloride (Klor-Con 20) 20 meq ONCE ONCE PO ; Start 08/10/16 at 19:00; Stop 08/10/16 at 19:01 Acetaminophen/ Hydrocodone Bitart ([place] (5/325)) 1 tab Q4H PRN PO PAIN Last administered on 08/10/16 15:54; Admin Dose 1 TAB; Start 08/10/16 at 16:00 REBECCA WEST Aug 10, 2016 18:59
[2016-08-11] VITALS (12 sets, daily range): BP systolic 111–143; BP diastolic 54–62; PULSE 70–108; RESP 14–20
[2016-08-11] MEDS ORDERED: FUROSEMIDE 20 MG TAB PO SCH (06:00)
[2016-08-11 06:37] LABS: ADD SCAN DIFF NO
[2016-08-11 06:50] LABS: BASOPHILS % 0.1 % (0.0-2.0); LYMPHOCYTES # 0.8 10^3/ul (0.8-2.9); LYMPHOCYTES % 7.3 % (15.0-51.0); MEAN CORPUSCULAR HEMOGLOBIN 30.5 pg (29.0-33.0); MEAN CORPUSCULAR HGB CONC 32.4 g/dl (32.0-37.0); MEAN CORPUSCULAR VOLUME 93.9 fl (82.0-101.0); MEAN PLATELET VOLUME 10.5 fl (7.4-10.4); MONOCYTE # 0.2 10^3/ul (0.3-0.9); MONOCYTES % 1.9 % (0.0-11.0); NEUTROPHILS % 90.3 % (39.0-77.0); PLATELET COUNT 453 10^3/UL (140-415); RED BLOOD COUNT 3.94 10^6/ul (4.20-5.40); RED CELL DISTRIBUTION WIDTH 13.2 % (11.5-14.5); WHITE BLOOD COUNT 11.1 10^3/ul (4.8-10.8)
[2016-08-11 06:54] LABS: POTASSIUM 4.8 mmol/L (3.5-5.1)
[2016-08-11 06:57] LABS: CREATININE 1.07 mg/dl (0.44-1.00)
[2016-08-11] MEDS: PANTOPRAZOLE (EC) 40 MG TAB PO SCH (06:59)
[2016-08-11] MEDS: FUROSEMIDE 40 MG TAB PO SCH ×2 (07:01→18:35)
--- NOTE | 2016-08-11 07:47 | CONS ---
Date/Time of Note Date/Time of Note DATE: 08/11/16 TIME: 07:45 Assessment/Plan Assessment/Plan Chief Complaint/Hosp Course - h/o pruritic rash with excoriation, scabs, concerning for scabies with possibly superimposed infection. Negative for scabies - recent h/o subcutaneous fluid collection of RLE s/p needle aspiration at her PMD's office - pain of b/l LE, edema of RLE - 3 cm x 3 cm superficial ulcer of RLE, non-purulent - prediabetes - HTN recommendations - I ordered wound culture by swabbing the open ulcer of R lower extremity yesterday, it was not done. Will ask her RN today - MRSA screen - continue IV vancomycin and cefepime while waiting for wound culture result - keep her under contact isolation until MRSA is ruled out management d/w Pt, her son, RN Problems: Consultation Date/Type/Reason Admit Date/Time Aug 09, 2016 at 09:03 Initial Consult Date 08/09/16 Type of Consultation: ID Referring Provider: REBECCA WEST 24 HR Interval Summary Constitutional: no complaints Detailed Summary Eyes: no complaints ENT: no complaints Respiratory: no complaints Cardiovascular: no complaints Gastrointestinal: no complaints Genitourinary: no complaints Musculoskeletal: no complaints Skin: pruritis, rash, skin lesions Neurologic: other (pain in b/l LE) Exam/Review of Systems Vital Signs Vitals Vital Signs Date Time Temp Pulse Resp B/P Pulse Ox O2 Delivery O2 Flow Rate FiO2 08/11/16 04:02 72 08/11/16 04:00 98.1 19 120/56 96 08/09/16 04:15 Room Air Intake and Output 08/10/16 08/10/16 08/11/16 15:00 23:00 07:00 Intake Total 500 ml Balance 500 ml Exam Constitutional: frail Psych: nl mood/affect, no complaints Head: atraumatic, normocephalic Eyes: nl conjunctiva, nl lids ENMT: nl external ears & nose, nl nasal mucosa & septum Neck: non-tender, supple Respiratory: clear to auscultation, normal air movement Cardiovascular: nl pulses, regular rate and rhythm Skin: rash or lesions (diffuse excoriation and scabs on all extremities and some on the neck, 3cm x 3cm open ulcer on RLE) Results Result Diagram: 08/11/16 0600 08/11/16 0600 Results 24 hrs Laboratory Tests Test 08/10/16 07:49 08/11/16 06:00 Anion Gap 17 H 17 H Basophils # 0.0 0.0 Basophils % 0.2 0.1 Blood Urea Nitrogen 21 H 25 H Calcium Level 8.6 9.0 Carbon Dioxide Level 23 25 Chloride Level 107 105 Creatinine 0.90 1.07 H Eosinophils # 0.0 0.0 Eosinophils % 0.0 0.0 Glucose Level 140 218 Hematocrit 32.1 L 37.0 Hemoglobin 10.5 L 12.0 Lymphocytes # 0.8 0.8 Lymphocytes % 13.5 L 7.3 L Mean Corpuscular Hemoglobin 30.8 30.5 Mean Corpuscular Hemoglobin Concent 32.7 32.4 Mean Corpuscular Volume 94.1 93.9 Mean Platelet Volume 10.8 H 10.5 H Monocytes # 0.3 0.2 L Monocytes % 5.2 1.9 Neutrophils # 4.5 10.0 H Neutrophils % 80.7 H 90.3 H Nucleated Red Blood Cells # 0.0 0.0 Nucleated Red Blood Cells % 0.0 0.0 Platelet Count 376 453 #H Potassium Level 3.6 4.8 Red Blood Count 3.41 L 3.94 L Red Cell Distribution Width 13.1 13.2 Sodium Level 143 142 White Blood Count 5.5 11.1 #H Magnesium Level 2.6 H Medications Medications Current Medications Aspirin (Aspirin) 81 mg DAILY PO Last administered on 08/10/16 11:40; Admin Dose 81 MG; Start 08/09/16 at 09:00 Acetaminophen (Tylenol Tab) 500 mg Q6H PRN PO PAIN AND OR ELEVATED TEMP Last administered on 08/10/16 13:31; Admin Dose 500 MG; Start 08/09/16 at 05:00 Ondansetron HCl 4 mg 4 mg Q6H PRN IV NAUSEA AND/OR VOMITING; Start 08/09/16 at 05:00 Cefepime HCl (Maxipime 1gm/50 ml (Pmx)) 50 ml @ 100 mls/hr Q12 IVPB Last administered on 08/10/16 21:43; Admin Dose 100 MLS/HR; Start 08/09/16 at 09:00 Enoxaparin Sodium (Lovenox) 65 mg Q24H SC Last administered on 08/09/16 20:30 ; Admin Dose 65 MG; Start 08/09/16 at 21:00; Status Future Hold Lisinopril (Zestril) 2.5 mg BID PO Last administered on 08/10/16 21:45; Admin Dose 2.5 MG; Start 08/09/16 at 21:00 Clopidogrel Bisulfate (plaVIX) 75 mg DAILY PO Last administered on 08/10/16 11: 40; Admin Dose 75 MG; Start 08/09/16 at 11:30 Pantoprazole 40 mg 40 mg DAILY@06 PO Last administered on 08/11/16 06:59; Admin Dose 40 MG; Start 08/10/16 at 06:00 Vancomycin HCl/ Sodium Chloride (Vancocin/NS) 150 ml @ 75 mls/hr Q24H IVPB Last administered on 08/10/16 11:40; Admin Dose 75 MLS/HR; Start 08/10/16 at 11: 00 Methylprednisolone Sodium Succinate (Solu-Medrol) 20 mg Q12 IV Last administered on 08/10/16 21:44; Admin Dose 20 MG; Start 08/09/16 at 21:00 Loratadine (Claritin) 10 mg DAILY PO Last administered on 08/10/16 08:24; Admin Dose 10 MG; Start 08/09/16 at 18:30 Metoprolol Tartrate (Lopressor) 25 mg BID PO Last administered on 08/10/16 21: 53; Admin Dose 25 MG; Start 08/10/16 at 21:00 Acetaminophen/ Hydrocodone Bitart ([place] (5/325)) 1 tab Q4H PRN PO PAIN Last administered on 08/10/16 15:54; Admin Dose 1 TAB; Start 08/10/16 at 16:00 MENDY MICHAEL M.D. Aug 11, 2016 07:47
[2016-08-11] MEDS: METHYLPREDNISOLONE 40 MG INJ IV SCH ×2 (09:48→21:46)
[2016-08-11] MEDS: CEFEPIME 1GM/50 ML (PMX) 50 ML IVPB SCH ×2 (09:49→21:46)
[2016-08-11] MEDS: CLOPIDOGREL 75 MG TAB PO SCH (09:49)
[2016-08-11] MEDS: ASPIRIN 81 MG TAB PO SCH (09:52)
[2016-08-11] MEDS: LORATADINE 10 MG TAB PO SCH (09:53)
[2016-08-11] MEDS: METOPROLOL 25 MG TAB PO SCH ×2 (09:53→21:49)
[2016-08-11] MEDS: LISINOPRIL 5 MG TAB PO SCH ×2 (09:53→21:47)
--- NOTE | 2016-08-11 12:48 | PN ---
Date/Time of Note Date/Time of Note DATE: 08/11/16 TIME: 12:44 Assessment/Plan VTE Prophylaxis VTE Prophylaxis Intervention: LMWH Lines/Catheters IV Catheter Type (from [facility]): Peripheral IV Urinary Cath still in place: No Assessment/Plan Assessment/Plan 1. Non-ST elevation myocardial infarction. No chest pain at present. A friend at bed side Pt anf pt's daughter refused cardiac cath. The patient is followed by Dr. Coates in cardiology consultation. Continue Lovenox, Plavix, aspirin and metoprolol. 2. Acute decompensated diastolic congestive heart failure. Continue IV Lasix , monitor electrolytes. 3. Possible bilateral lower extremity cellulitis. Continue patient on vancomycin and cefepime. Dr. Ivette chavis is following in infectious disease consultation. 4. Hypertension. 5. Hyperlipidemia. 6. Prediabetes. 7. Full body rash. r/o scabies. Continue Lovenox for deep venous thrombosis prophylaxis and Pepcid for peptic ulcer disease prophylaxis. Further recommendations based on clinical course. Plan of care discussed with Dr. Menon. Subjective 24 Hr Interval Summary Constitutional: no complaints Exam/Review of Systems Vital Signs Vitals Vital Signs Date Time Temp Pulse Resp B/P Pulse Ox O2 Delivery O2 Flow Rate FiO2 08/11/16 12:28 70 08/11/16 08:09 97.4 18 114/57 100 08/09/16 04:15 Room Air Intake and Output 08/10/16 08/10/16 08/11/16 15:00 23:00 07:00 Intake Total 500 ml 240 ml Balance 500 ml 240 ml Results Result Diagram: 08/11/16 0600 08/11/16 0600 Results 24 hrs Laboratory Tests Test 08/11/16 06:00 Anion Gap 17 H Basophils # 0.0 Basophils % 0.1 Blood Urea Nitrogen 25 H Calcium Level 9.0 Carbon Dioxide Level 25 Chloride Level 105 Creatinine 1.07 H Eosinophils # 0.0 Eosinophils % 0.0 Glucose Level 218 Hematocrit 37.0 Hemoglobin 12.0 Lymphocytes # 0.8 Lymphocytes % 7.3 L Magnesium Level 2.6 H Mean Corpuscular Hemoglobin 30.5 Mean Corpuscular Hemoglobin Concent 32.4 Mean Corpuscular Volume 93.9 Mean Platelet Volume 10.5 H Monocytes # 0.2 L Monocytes % 1.9 Neutrophils # 10.0 H Neutrophils % 90.3 H Nucleated Red Blood Cells # 0.0 Nucleated Red Blood Cells % 0.0 Platelet Count 453 #H Potassium Level 4.8 Red Blood Count 3.94 L Red Cell Distribution Width 13.2 Sodium Level 142 White Blood Count 11.1 #H Medications Medications Current Medications Aspirin (Aspirin) 81 mg DAILY PO Last administered on 08/11/16 09:52; Admin Dose 81 MG; Start 08/09/16 at 09:00 Acetaminophen (Tylenol Tab) 500 mg Q6H PRN PO PAIN AND OR ELEVATED TEMP Last administered on 08/10/16 13:31; Admin Dose 500 MG; Start 08/09/16 at 05:00 Ondansetron HCl 4 mg 4 mg Q6H PRN IV NAUSEA AND/OR VOMITING; Start 08/09/16 at 05:00 Cefepime HCl (Maxipime 1gm/50 ml (Pmx)) 50 ml @ 100 mls/hr Q12 IVPB Last administered on 08/11/16 09:49; Admin Dose 100 MLS/HR; Start 08/09/16 at 09:00 Enoxaparin Sodium (Lovenox) 65 mg Q24H SC Last administered on 08/09/16 20:30 ; Admin Dose 65 MG; Start 08/09/16 at 21:00; Status Future Hold Lisinopril (Zestril) 2.5 mg BID PO Last administered on 08/11/16 09:53; Admin Dose 2.5 MG; Start 08/09/16 at 21:00 Clopidogrel Bisulfate (plaVIX) 75 mg DAILY PO Last administered on 08/11/16 09: 49; Admin Dose 75 MG; Start 08/09/16 at 11:30 Pantoprazole 40 mg 40 mg DAILY@06 PO Last administered on 08/11/16 06:59; Admin Dose 40 MG; Start 08/10/16 at 06:00 Vancomycin HCl/ Sodium Chloride (Vancocin/NS) 150 ml @ 75 mls/hr Q24H IVPB Last administered on 08/10/16 11:40; Admin Dose 75 MLS/HR; Start 08/10/16 at 11: 00 Methylprednisolone Sodium Succinate (Solu-Medrol) 20 mg Q12 IV Last administered on 08/11/16 09:48; Admin Dose 20 MG; Start 08/09/16 at 21:00 Loratadine (Claritin) 10 mg DAILY PO Last administered on 08/11/16 09:53; Admin Dose 10 MG; Start 08/09/16 at 18:30 Metoprolol Tartrate (Lopressor) 25 mg BID PO Last administered on 08/11/16 09: 53; Admin Dose 25 MG; Start 08/10/16 at 21:00 Acetaminophen/ Hydrocodone Bitart ([place] (5/325)) 1 tab Q4H PRN PO PAIN Last administered on 08/10/16 15:54; Admin Dose 1 TAB; Start 08/10/16 at 16:00 Miscellaneous Information (*Rx Drug Level Order Reminder*) VANCO TROUGH @ 1, 000 ON... ONCE ONCE XX ; Start 08/12/16 at 10:00; Stop 08/12/16 at 10:01 CHARLES FLORES Aug 11, 2016 12:48
[2016-08-11] MEDS: VANCOMYCIN 750 MG in SOD CHLORIDE 0.9% 150 ML IVPB SCH (13:39)
--- NOTE | 2016-08-11 15:29 | CONS ---
Date/Time of Note Date/Time of Note DATE: 08/11/16 TIME: 15:27 Assessment/Plan Assessment/Plan Additional Assessment/Plan Non-ST elevation [place] Acute decompensated diastolic congestive heart failure Moderate mitral valve regurgitation Full-body rash Renal dysfunction -Shortness of breath continues to improve. Denies any further chest pain or arm pain. Continue current diuretic regimen as blood pressure and renal function permits. Consultation Date/Type/Reason Admit Date/Time Aug 09, 2016 at 09:03 Initial Consult Date 08/09/16 Type of Consultation: cv Referring Provider: REBECCA WEST 24 HR Interval Summary Free Text/Dictation Shortness of breath continues to improve. Denies any chest pain Exam/Review of Systems Vital Signs Vitals Vital Signs Date Time Temp Pulse Resp B/P Pulse Ox O2 Delivery O2 Flow Rate FiO2 08/11/16 12:51 98.3 69 16 111/54 95 08/09/16 04:15 Room Air Intake and Output 08/10/16 08/10/16 08/11/16 15:00 23:00 07:00 Intake Total 500 ml 240 ml Balance 500 ml 240 ml Exam Constitutional: alert, oriented, other (No apparent distress) Head: normocephalic Neck: supple Respiratory: other (Coarse breath sounds bilaterally, no wheezing) Cardiovascular: other (S1-S2 heard), regular rate and rhythm Gastrointestinal: bowel sounds, non-tender, other (No guarding), soft Extremities: edema Results Result Diagram: 08/11/16 0600 08/11/16 0600 Results 24 hrs Laboratory Tests Test 08/11/16 06:00 Anion Gap 17 H Basophils # 0.0 Basophils % 0.1 Blood Urea Nitrogen 25 H Calcium Level 9.0 Carbon Dioxide Level 25 Chloride Level 105 Creatinine 1.07 H Eosinophils # 0.0 Eosinophils % 0.0 Glucose Level 218 Hematocrit 37.0 Hemoglobin 12.0 Lymphocytes # 0.8 Lymphocytes % 7.3 L Magnesium Level 2.6 H Mean Corpuscular Hemoglobin 30.5 Mean Corpuscular Hemoglobin Concent 32.4 Mean Corpuscular Volume 93.9 Mean Platelet Volume 10.5 H Monocytes # 0.2 L Monocytes % 1.9 Neutrophils # 10.0 H Neutrophils % 90.3 H Nucleated Red Blood Cells # 0.0 Nucleated Red Blood Cells % 0.0 Platelet Count 453 #H Potassium Level 4.8 Red Blood Count 3.94 L Red Cell Distribution Width 13.2 Sodium Level 142 White Blood Count 11.1 #H Medications Medications Current Medications Aspirin (Aspirin) 81 mg DAILY PO Last administered on 08/11/16 09:52; Admin Dose 81 MG; Start 08/09/16 at 09:00 Acetaminophen (Tylenol Tab) 500 mg Q6H PRN PO PAIN AND OR ELEVATED TEMP Last administered on 08/10/16 13:31; Admin Dose 500 MG; Start 08/09/16 at 05:00 Ondansetron HCl 4 mg 4 mg Q6H PRN IV NAUSEA AND/OR VOMITING; Start 08/09/16 at 05:00 Cefepime HCl (Maxipime 1gm/50 ml (Pmx)) 50 ml @ 100 mls/hr Q12 IVPB Last administered on 08/11/16 09:49; Admin Dose 100 MLS/HR; Start 08/09/16 at 09:00 Enoxaparin Sodium (Lovenox) 65 mg Q24H SC Last administered on 08/09/16 20:30 ; Admin Dose 65 MG; Start 08/09/16 at 21:00; Status Future Hold Lisinopril (Zestril) 2.5 mg BID PO Last administered on 08/11/16 09:53; Admin Dose 2.5 MG; Start 08/09/16 at 21:00 Clopidogrel Bisulfate (plaVIX) 75 mg DAILY PO Last administered on 08/11/16 09: 49; Admin Dose 75 MG; Start 08/09/16 at 11:30 Pantoprazole 40 mg 40 mg DAILY@06 PO Last administered on 08/11/16 06:59; Admin Dose 40 MG; Start 08/10/16 at 06:00 Vancomycin HCl/ Sodium Chloride (Vancocin/NS) 150 ml @ 75 mls/hr Q24H IVPB Last administered on 08/11/16 13:39; Admin Dose 75 MLS/HR; Start 08/10/16 at 11: 00 Methylprednisolone Sodium Succinate (Solu-Medrol) 20 mg Q12 IV Last administered on 08/11/16 09:48; Admin Dose 20 MG; Start 08/09/16 at 21:00 Loratadine (Claritin) 10 mg DAILY PO Last administered on 08/11/16 09:53; Admin Dose 10 MG; Start 08/09/16 at 18:30 Metoprolol Tartrate (Lopressor) 25 mg BID PO Last administered on 08/11/16 09: 53; Admin Dose 25 MG; Start 08/10/16 at 21:00 Acetaminophen/ Hydrocodone Bitart ([place] (5/325)) 1 tab Q4H PRN PO PAIN Last administered on 08/10/16 15:54; Admin Dose 1 TAB; Start 08/10/16 at 16:00 Miscellaneous Information (*Rx Drug Level Order Reminder*) VANCO TROUGH @ 1, 000 ON... ONCE ONCE XX ; Start 08/12/16 at 10:00; Stop 08/12/16 at 10:01 Michael Coates DO Aug 11, 2016 15:28
[2016-08-11] MEDS: HYDROCODONE/APAP (5/325) TAB PO PRN (18:39)
[2016-08-12] VITALS (29 sets, daily range): BP systolic 40–150; BP diastolic 25–137; PULSE 0–103; RESP 18–25
[2016-08-12] MEDS ORDERED: AMIODARONE 150MG/D5W BOLUS 100 ML IV ONE (05:11)
[2016-08-12] MEDS ORDERED: AMIODARONE 900 MG in DEXTROSE 5% 482 ML IV SCH (05:30)
[2016-08-12 05:58] LABS: AADO2 Arterial 339.6 mmHg (7.0-24.0); Allen Test ACCEPTAB; Arterial Base Excess -22.3 mmol/L (-3.0-3); Arterial COHb 0.3 % (0.0-3.0); Arterial Fraction of Oxyhgb 98.4 % (93.0-99.0); Arterial HCO3 6.4 mmol/L (22.0-26.0); Arterial MetHb 0.5 % (0.0-1.5); Arterial Total Hemglobin 12.6 g/dl (12.0-18.0); Blood Gas Low PEEP Setting 0 cmH2O; MODE VENT - AC
[2016-08-12] MEDS: FUROSEMIDE 40 MG TAB PO SCH (06:00)
[2016-08-12] MEDS: PANTOPRAZOLE (EC) 40 MG TAB PO SCH (06:00)
[2016-08-12] MEDS ORDERED: NORepinephrine 8MG/250 ML (PMX 250 ML IV SCH (06:00)
[2016-08-12] MEDS ORDERED: NA BICARBONATE 8.4% 50 ML SYG IV ONE ×4 (06:03→06:59)
[2016-08-12] MEDS ORDERED: PHENYLephrine 20MG IN 250 ML 250 ML ONE (06:22)
--- NOTE | 2016-08-12 06:32 | EN ---
Date/Time of Note Date/Time of Note DATE: 08/12/16 TIME: 06:22 ER Progress Note Chief complaint : CODE BLUE History of present illness: The patient is 76-year-old female with history of non-STEMI in telemetry unit. She had atrial fibrillation on the monitor. When the nurse came to her room she was on the floor. CODE BLUE was activated. I responded to the CODE BLUE. The patient was brought from the floor to the bed by the nurses. Cervical spine precaution was observed.. She was immediately intubated without any difficulty on first attempt. Accu-Chek was 195. She was in V. fib, then asystole, she was defibrillated and treated with amiodarone 300 mg IV, epinephrine 1 mg IV x5 by approximately 3 minutes apart with good response. She had return of spontaneous circulation. The code started at 0 4: 53 AM and ended at 0 5:17 AM. Cervical collar was ordered for the patient She was transferred to ICU, she again went to asystole, she was treated with epinephrine 1 mg IV 2 with good response. ABG show pH of 7.0, therefore she was treated with 1 amp of sodium bicarb IV. She was treated with 1 L normal saline and started on Levophed drip due to hypotension. The second code started at 5:40 AM and ended at 5:46 AM Cardiopulmonary Resuscitation by me: See code documentation for specific details. ACLS and BLS were performed with high quality chest compressions and minimal interruptions. Reversible causes were assessed and treated. Endotracheal Intubation by me: Pre assessment performed. See preceding note for details. Pre-oxygenation performed with 100% oxygen RSI: Performed w/o complication or hypoxic events. Medications as ordered. Blade: [place] scope ET Tube: 7.5cm Depth: 21 cm at the lip Intubation confirmed by colorimetric CO2, equal breath sounds, quiet over the stomach. Brain CT, cervical spine CT, chest x-ray are pending Right femoral venous central line was done on emergent basis because patient required pressor Central Line Placement by me: Patient consented, sterilely draped, full prep, gown, glove, mask, time out performed. Anesthesia: 1% lidocaine locally Location: 1% Device: Multiple lumen Technique: Seldinger technique. Secured with suture. Results: Venous return from all ports with easy saline flush. No complications. Guide wire retrieved and disposed of. [ED Ultrasound: Central line placed by me using concurrent ultrasound guidance. Real time image archived in the medical record confirms vascular anatomy. Chest X-ray 1V Interpreted by me: Central line in SVC, Normal soft tissue, No evidence of pneumothorax. Impression #1 status post ventricular fibrillation #2 status post fall #3 acute non-STEMI Disposition: I discussed treatment plan with the nurses and have asked the nurses to contact her zinc chloride operator Dr. Coates for further treatment. Critical Care: Time: 75 minutes excluding all billable procedures. Treatments/Evaluations: Close monitoring and treatment of unstable vital signs, cardiorespiratory, and neurologic status, while maintaining tight balance of fluid, respiratory, and cardiac interventions. CHELA SMITH MD Aug 12, 2016 06:32
[2016-08-12 06:37] LABS: ADD SCAN DIFF NO
[2016-08-12 06:49] LABS: ABNORMAL IP MESSAGE 1; BASOPHILS % 0.3 % (0.0-2.0); EOSINOPHILS # 0.1 10^3/ul (0.0-0.5); EOSINOPHILS % 0.7 % (0.0-7.0); HEMATOCRIT 30.5 % (37.0-47.0); HEMOGLOBIN 9.1 g/dl (12.0-16.0); LYMPHOCYTES # 3.3 10^3/ul (0.8-2.9); LYMPHOCYTES % 28.2 % (15.0-51.0); MEAN CORPUSCULAR HGB CONC 29.8 g/dl (32.0-37.0); MEAN CORPUSCULAR VOLUME 103.7 fl (82.0-101.0); MEAN PLATELET VOLUME 10.3 fl (7.4-10.4); MONOCYTE # 0.4 10^3/ul (0.3-0.9); MONOCYTES % 3.2 % (0.0-11.0); NEUTROPHIL # 6.6 10^3/ul (1.6-7.5); NEUTROPHILS % 57.1 % (39.0-77.0); NUCLEATED RED BLOOD CELLS% 0.3 /100WBC (0.0-0.0); PLATELET COUNT 166 10^3/UL (140-415); RED BLOOD COUNT 2.94 10^6/ul (4.20-5.40); RED CELL DISTRIBUTION WIDTH 13.2 % (11.5-14.5); WHITE BLOOD COUNT 11.6 10^3/ul (4.8-10.8)
[2016-08-12 06:52] LABS: ALBUMIN 1.8 g/dl (3.3-4.9)
[2016-08-12 06:53] LABS: POTASSIUM 3.8 mmol/L (3.5-5.1)
[2016-08-12 06:54] LABS: CREATININE 1.24 mg/dl (0.44-1.00)
[2016-08-12 06:55] LABS: ALBUMIN/GLOBULIN RATIO 0.78; CALCIUM 6.1 mg/dl (8.4-10.2); MAGNESIUM 2.3 mg/dl (1.7-2.5); TOTAL PROTEIN 4.1 g/dl (6.1-8.1)
[2016-08-12] MEDS ORDERED: NA BICARBONATE 8.4% 50 ML SYG ONE (07:00)
[2016-08-12] MEDS ORDERED: DEXTROSE 5% WATER 500 ML BAG ONE (07:00)
[2016-08-12] MEDS ORDERED: VERAPAMIL 5 MG INJ ONE (07:00)
[2016-08-12] MEDS ORDERED: AMIODARONE 150 MG INJ ONE (07:00)
[2016-08-12] MEDS ORDERED: VASOPRESSIN 60 UNIT in DEXTROSE 5% 57 ML IV SCH (07:00)
[2016-08-12] MEDS ORDERED: AMIODARONE 900 MG INJ ONE (07:00)
[2016-08-12] MEDS ORDERED: ROCURONIUM 50 MG INJ ONE (07:00)
[2016-08-12] MEDS ORDERED: EPINEPHrine 0.1 MG/ML SYG ONE (07:00)
[2016-08-12] MEDS ORDERED: ATROPINE 1 MG/10 ML SYRINGE ONE (07:00)
--- NOTE | 2016-08-12 07:01 | QN ---
Documentation Comment I was called to room ICU 107 for CODE BLUE. When I entered the room I saw patient that was intubated, and unresponsive. The patient went into a pulseless electrical activity according to the nurse. Patient was given 1 mg of epinephrine prior to my arrival, and was undergoing chest compressions. ACLS protocol was followed. We continued chest compressions for 2 minutes. We were able to get return of spontaneous circulation. The patient had had an episode of V. fib arrest, and V. tach arrest prior according to her nurse. This patient is on levo fed, and Rolando-Synephrine. I did add vasopressin. I have spoken to the patient's family member who is at bedside and her family members aware of the patient's critical condition. Cardiopulmonary Resuscitation by me: See code documentation for specific details. ACLS and BLS were performed with high quality chest compressions and minimal interruptions. Reversible causes were assessed and treated. MELISSA LARKIN DO Aug 12, 2016 07:01
[2016-08-12] MEDS ORDERED: ATROPINE 1 MG INJ IV STA (07:03)
--- NOTE | 2016-08-12 07:05 | CONS ---
Date/Time of Note Date/Time of Note DATE: 08/12/16 TIME: 06:58 Assessment/Plan Assessment/Plan Additional Assessment/Plan Chest x-ray from today is pending post intubation. Chest x-ray was reviewed from of last month which is showing cardio megaly and pulmonary edema. ABG was reviewed from 530 this morning which is showing severe metabolic acidosis with pH of 7.0. Ventilator settings; AC of 20, tidal volume of 500, PEEP of 0, 100% FiO2. Assessment recommendations; 1. Patient admitted with elevated troponins, cardiac catheterization was recommended however apparently the family declined. 2. Patient status post cardiac arrest with long CPR. 3. Profound hypotension. 4. Profound metabolic acidosis. Chest x-ray, continue current treatment. Give additional sodium bicarb. Will obtain a blood gas in about half an hour. Once ABG and chest x-rays are obtained I will review them and make further recommend recommendations if required. Prognosis remains extremity poor. Continue broad-spectrum antibiotic coverage for now. Consultation Date/Type/Reason Admit Date/Time Aug 09, 2016 at 09:03 Date of Consultation: Aug 12, 2016 Type of Consultation: Pulmonary/critical care Reason for Consultation Patient had cardiac arrest on the floor status post CPR. She with respiratory failure. Severely hypotensive. Next History of presenting; patient is a 76-year-old lady who was admitted on last to to hospital with complaint of lower extremity edema the patient was being treated on the medical floor with antibiotics however early this morning the patient had a cardiac arrest event along CPR was done patient was intubated by the ER physician also underwent a central line placement for the time I saw the patient the patient is orally intubated, on maxed out doses of Levophed phenylephrine and is completely unresponsive. Past medical history; 1. History of hypertension. Medications; were reviewed. Allergies; none. Social history; most of any smoking alcohol or drug abuse. Family history; she does have a supportive family. Various family members of diabetes and hypertension. 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 Review of systems; currently unable to be obtained. General examination; elderly lady or intubated, unresponsive. Hypotensive. Constitutional: no complaints Eyes: no complaints ENT: no complaints Respiratory: no complaints Cardiovascular: no complaints Gastrointestinal: no complaints Genitourinary: no complaints Musculoskeletal: no complaints Skin: pruritis, rash, skin lesions Neurologic: other (pain in b/l LE) Psychological: nl mood/affect, no complaints Past Medical History Medical History: hypertension, other (prediabetes) Social History Alcohol Use: none Smoking Status: Never smoker Drug Use: none Exam/Review of Systems Vital Signs Vitals Vital Signs Date Time Temp Pulse Resp B/P Pulse Ox O2 Delivery O2 Flow Rate FiO2 08/12/16 06:24 67 20 100 100 08/12/16 04:42 98.5 107/55 08/09/16 04:15 Room Air Intake and Output 08/11/16 08/11/16 08/12/16 15:00 23:00 07:00 Intake Total 1080 ml Balance 1080 ml Exam HEENT examination; supple neck, positive JVD. Or intubated. Patient has a few missing teeth. Pupils are midsize and reactive to light bilaterally. No neck masses, no thyromegaly. Chest examination; diminished breath sound bilaterally. S1-S2 audible, no murmurs. Regular rhythm. Pacemaker pads are applied to the chest. Abdomen examination; protuberant, bowel sounds absent. Umbilicus is inverted. No scars are present. Extremity examination is no peripheral edema. Pulses are palpable. 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 Results Result Diagram: 08/11/16 0600 08/11/16 0600 Results 24 hrs Laboratory Tests Test 08/12/16 04:58 08/12/16 05:39 08/12/16 05:45 Bedside Glucose 195 278 H Arterial Blood HCO3 6.4 *L Arterial Blood Base Excess -22.3 L Arterial Blood Oxygen Saturation 99.2 Daryl Test ACCEPTAB Arterial Blood Gas Puncture Site Left Radial Arterial Blood Carboxyhemoglobin 0.3 Arterial Blood Date Drawn 08/12/2016 5:40:14 AM Arterial Blood Methemoglobin 0.5 Arterial Blood pCO2 (Temp correct) 22.9 L Arterial Blood pH (Temp corrected) 7.063 *L Arterial Blood pO2 (Temp corrected) 350.5 H Blood Gas A-a O2 Differential 339.6 H Blood Gas Actual Respiration Rate 20 Blood Gas Critical Value Read Back Hank SMITH MD Blood Gas Low PEEP Setting 0 Blood Gas Modality VENT - AC Blood Gas Notified Time 08/12/2016 5:58:30 AM Blood Gas Notified Whom DELONTE Blood Gas Respiration Rate 20.0 Blood Gas Specimen Source Blood arterial Blood Gas Temperature 37.0 Blood Gas Tidal Volume 500.0 FiO2 100.0 Oxyhemoglobin Percent 98.4 Total Hemoglobin 12.6 Medications Medications Current Medications Aspirin (Aspirin) 81 mg DAILY PO Last administered on 08/11/16 09:52; Admin Dose 81 MG; Start 08/09/16 at 09:00 Acetaminophen (Tylenol Tab) 500 mg Q6H PRN PO PAIN AND OR ELEVATED TEMP Last administered on 08/10/16 13:31; Admin Dose 500 MG; Start 08/09/16 at 05:00 Ondansetron HCl 4 mg 4 mg Q6H PRN IV NAUSEA AND/OR VOMITING; Start 08/09/16 at 05:00 Cefepime HCl (Maxipime 1gm/50 ml (Pmx)) 50 ml @ 100 mls/hr Q12 IVPB Last administered on 08/11/16 21:46; Admin Dose 100 MLS/HR; Start 08/09/16 at 09:00 Enoxaparin Sodium (Lovenox) 65 mg Q24H SC Last administered on 08/09/16 20:30 ; Admin Dose 65 MG; Start 08/09/16 at 21:00; Status Future Hold Lisinopril (Zestril) 2.5 mg BID PO Last administered on 08/11/16 21:47; Admin Dose 2.5 MG; Start 08/09/16 at 21:00 Clopidogrel Bisulfate (plaVIX) 75 mg DAILY PO Last administered on 08/11/16 09: 49; Admin Dose 75 MG; Start 08/09/16 at 11:30 Pantoprazole 40 mg 40 mg DAILY@06 PO Last administered on 08/11/16 06:59; Admin Dose 40 MG; Start 08/10/16 at 06:00 Vancomycin HCl/ Sodium Chloride (Vancocin/NS) 150 ml @ 75 mls/hr Q24H IVPB Last administered on 08/11/16 13:39; Admin Dose 75 MLS/HR; Start 08/10/16 at 11: 00 Methylprednisolone Sodium Succinate (Solu-Medrol) 20 mg Q12 IV Last administered on 08/11/16 21:46; Admin Dose 20 MG; Start 08/09/16 at 21:00 Loratadine (Claritin) 10 mg DAILY PO Last administered on 08/11/16 09:53; Admin Dose 10 MG; Start 08/09/16 at 18:30 Metoprolol Tartrate (Lopressor) 25 mg BID PO Last administered on 08/11/16 21: 49; Admin Dose 25 MG; Start 08/10/16 at 21:00 Acetaminophen/ Hydrocodone Bitart ([place] (5/325)) 1 tab Q4H PRN PO PAIN Last administered on 08/11/16 18:39; Admin Dose 1 TAB; Start 08/10/16 at 16:00 Miscellaneous Information VANCO TROUGH @ 1,000 ON... ONCE ONCE XX ; Start 08/12 at 10:00; Stop 08/12/16 at 10:01 Amiodarone HCl 900 mg/Dextrose 500 ml @ 0 mls/hr Q0M IV ; Start 08/12/16 at 05:30 ; Stop 08/13/16 at 05:29 Norepinephrine 250 ml @ 1.875 mls/ hr TITRATE IV ; Start 08/12/16 at 06:00; Stop 08/12/16 at 08:59 Norepinephrine 16 mg/Dextrose 500 ml @ 1.87 mls/hr TITRATE IV ; Start 08/12/16 at 09:00 Phenylephrine HCl 250 ml @ 75 mls/hr TITRATE IV ; Start 08/12/16 at 06:30; Stop 08/12/16 at 09:59 Phenylephrine HCl 40 mg/Dextrose 500 ml @ 75 mls/hr TITRATE IV ; Start 08/12/16 at 10:00 Vasopressin/ Dextrose (Vasostrict/D5W) 60 ml @ 1.2 mls/hr Q12H IV ; Start at 07:00 AFSHAN ALARCON 3, 2017 07:05
[2016-08-12] MEDS: PHENYLephrine 20MG IN 250 ML 250 ML IV SCH ×2 (07:06→07:44)
[2016-08-12] MEDS ORDERED: ATROPINE 1 MG/10 ML SYRINGE IV STA (07:11)
[2016-08-12 07:12] LABS: TROPONIN-I 17.8 ng/ml (0.00-0.12)
[2016-08-12] MEDS ORDERED: DEXTROSE 50% 50 ML SYRINGE IV PRN ×2 (07:30)
[2016-08-12] MEDS ORDERED: INSULIN REGULAR, HUMAN 100 UNIT in SOD CHLORIDE 0.9% 99 ML IV SCH ×2 (07:30)
[2016-08-12] MEDS ORDERED: PHENYLephrine 40 MG in DEXTROSE 5% 496 ML IV SCH (07:30)
[2016-08-12] MEDS ORDERED: Discontinue all previous diabetes medication and insulin orders. XX ONE (07:30)
[2016-08-12] MEDS ORDERED: [UNRECOGNIZED DRUG - REMARK] XX SCH (07:30)
[2016-08-12] MEDS ORDERED: ACCUCHECK XX SCH ×2 (07:30→08:00)
[2016-08-12] MEDS ORDERED: Regular insulin 100 Units/100 ml NS IV SCH ×2 (08:00)
[2016-08-12] MEDS ORDERED: NORepinephrine 32 MG in DEXTROSE 5% 218 ML IV SCH (08:00)
[2016-08-12 08:15] LABS: AADO2 Arterial 580.2 mmHg (7.0-24.0); Allen Test ACCEPTAB; Arterial Base Excess -14.4 mmol/L (-3.0-3); Arterial COHb 0.3 % (0.0-3.0); Arterial Fraction of Oxyhgb 92.4 % (93.0-99.0); Arterial HCO3 13.4 mmol/L (22.0-26.0); Arterial MetHb 0.5 % (0.0-1.5); Arterial Total Hemglobin 9.3 g/dl (12.0-18.0); MODE VENT - AC
--- NOTE | 2016-08-12 08:48 | RADRPT ---
PROCEDURE: XR Chest. CLINICAL INDICATION: Intubated TECHNIQUE: An AP view of the chest was obtained. COMPARISON: Chest x-ray dated 08/08/2016 FINDINGS: The endotracheal tube tip is approximately 2.2 cm above the angel. There is prominence of the interstitial markings. No pleural effusion or pneumothorax is seen. Th e cardiomediastinal silhouette is mildly enlarged . Calcifications are seen within the aortic arch. The osseous structures demonstrate senescent changes. IMPRESSION: 1. Mild prominence of the interstitial markings, may reflect mild underlying interstitial edema or chronic lung changes. No significant interval change. 2. Mild cardiomegaly and aortic atherosclerosis. 3. Endotracheal tube tip approximate 2.2 cm above the angel. RPTAT: HH .Sylwia Pham MD, Date Time Electronically viewed and signed by .Sylwia Pham MD, on 08/12/2016 08:48 .G/
[2016-08-12] MEDS ORDERED: SODIUM BICARBONATE (IV ADD) 100 MEQ in SOD CHLORIDE 0.45% 1,000 ML IV SCH (09:30)
--- NOTE | 2016-08-12 09:47 | EN ---
Date/Time of Note Date/Time of Note DATE: 08/12/16 TIME: 09:39 Event Note Medicine Medicine Event Note The patient this morning 8:38 AM. 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
[2016-08-12] MEDS ORDERED: VANCOMYCIN 750 MG in SOD CHLORIDE 0.9% 150 ML IVPB SCH (13:00)
--- NOTE | 2016-08-12 13:45 | RADRPT ---
Vent Rate: 74 bpm RR Interval: 0 msec GA Interval: 172 msec QRS Duration: 188 msec QT Interval: 520 msec QTC Interval: 577 msec P-R-T Friend: 24 - 124 - -55 degrees Normal sinus rhythm Right bundle branch block T wave abnormality, consider inferior ischemia Abnormal ECG Electronically Signed By: Dre Jimenez [id number]
--- NOTE | 2016-08-15 02:27 | DES ---
DATE OF ADMISSION: 08/09/2016 DATE OF : 08/12/2016 CAUSE OF : Atherosclerotic heart disease and cardiopulmonary arrest. BRIEF HISTORY: The patient is a 76-year-old female who presented to the Emergency Room wit h bilateral lower extremity swelling and erythema . This patient had a history of hypertension and c oronary artery disease and hyperlipidemia. Patient was taking bisoprolol and Imdur, medication that she bought in [place]. The patient's troponin on admission was elevated to 1.3. Patient was given Lasik and Lovenox and patient was admitted for further evaluation and management to telemetry floor. HOSPITAL COURSE: The patient was evaluated by Dr. Coates in cardiology consultation. The patient w as diagnosed with non-ST elevation myocardial infarction. Patient and patient's daughter were also o ffered cardiac catheterization; however, patient and patient's daughter refused cardiac catheterizat ion. The patient was given aspirin, Plavix, statin, and also beta glynn and ANSON inhibitor. The p atient was evaluated by Dr. Forman in infectious disease consultation due to pruritic rash with ex coriation and . The patient had a wound culture ordered. Patient was given IV vancomycin and cefepime and placed on contact isolation. The patient complained of shortness of breath on exertion ; however, denied any chest pain. I talked to the patient's daughter regarding options of cardiac c atheterization since patient had elevated troponin; however, the daughter stated that her mother did not want any surgical intervention and did not want cardiac catheterization at that time in favor m edical management. The patient suffered cardiac arrest, was found unresponsive on 08/12 at 4:53 a.m . The patient was intubated and transferred to ICU. The patient also was placed on multiple presso rs for blood pressure support. The patient was also in severe metabolic acidosis. The patient was made a DNR by the patient's daughter's decision and patient at 8:38 a.m. on 08/12. Dictated By: REBECCA WEST ADVERTISING ANALYST for BREE DOE MD SR/NTS Conf#: [id number] DID#: [id number]
== END 2016-08-12 08:38 | disposition expired ==
LOC: E/R 20:15 → MS4 22:56 → OBSVTOIN 08-09 09:03 → ICU 08-12 05:44
PROVIDERS: ADMIT Internal Medicine; ATTEND Internal Medicine
PROC: 0BH17EZ Insertion of Endotracheal Airway into Trachea, Via Natural or Artificial Opening (ICD-10-PCS; principal; 2016-08-12)
PROC: 5A1935Z Respiratory Ventilation, Less than 24 Consecutive Hours (ICD-10-PCS; 2016-08-12)
PROC: 5A12012 Performance of Cardiac Output, Single, Manual (ICD-10-PCS; 2016-08-12)
PROC: 0BH17EZ Insertion of Endotracheal Airway into Trachea, Via Natural or Artificial Opening (ICD-10-PCS; 2016-08-12)
PROC: 06HM33Z Insertion of Infusion Device into Right Femoral Vein, Percutaneous Approach (ICD-10-PCS; 2016-08-12)
DX: I21.4 Non-ST elevation (NSTEMI) myocardial infarction (principal); I50.33 Acute on chronic diastolic (congestive) heart failure; J96.00 Acute respiratory failure, unspecified whether with hypoxia or hypercapnia; E87.2 Acidosis; L97.919 Non-pressure chronic ulcer of unspecified part of right lower leg with unspecified severity; I34.0 Nonrheumatic mitral (valve) insufficiency; I25.10 Atherosclerotic heart disease of native coronary artery without angina pectoris; I49.01 Ventricular fibrillation; R21 Rash and other nonspecific skin eruption; I10 Essential (primary) hypertension; E78.5 Hyperlipidemia, unspecified; R73.03 Prediabetes; N28.9 Disorder of kidney and ureter, unspecified; Z66 Do not resuscitate
CPT/HCPCS: 31500; 36415; 36600; 71010; 76536; 80048; 80053; 80061; 82550; 82553; 82803; 82962; 83036; 83605; 83735; 83880; 84443; 84484; 85025; 85610; 85730; 87070; 87081; 92950; 93005; 93306; 93970; 93971; 94002; 94770; 96372; 96374; G0378; J1940; J0171; J0282; J0461; J0692; J1815; J2370; J2920; J3370; J3475; J7050; J7070